=== PATIENT | female | born 1945 | race Caucasian/White ===

== ENCOUNTER → 2018-04-17 10:05 | Outpatient (CLI) | payer MEDICARE, SELFPAY ==
--- NOTE | 2018-04-17 | DI.MG.S_ITS ---
BILATERAL DIGITAL SCREENING MAMMOGRAM 3D/2D WITH CAD POST LUMPECTOMY: 04/17/2018 CLINICAL: Routine screening. Personal history of left breast cancer. Family history of breast cancer. Comparison is made to exams dated: 04/02/2017 mammogram - [facility], 02/15/2016 mammogram, and 12/17/2014 mammogram - [facility]. There are scattered fibroglandular elements in both breasts. Current study was also evaluated with a Computer Aided Detection (CAD) system. There are post operative findings and a biopsy clip in the left breast. No significant masses, calcifications, or other findings are seen in either breast. There has been no significant interval change. IMPRESSION: NEGATIVE There is no mammographic evidence of malignancy. A 1 year screening mammogram is recommended. This exam was interpreted at Station ID: [id number]. NOTE: For mammograms, a report in lay terms will be sent to the patient. Approximately 15% of breast malignancies will not be visualized mammographically. In the management of a palpable breast mass, a negative mammogram must not discourage biopsy of a clinically suspicious lesion. Electronically Signed By: Francisco alvarado/guadalupe:04/17/2018 16:47:34 letter sent: Normal Exam ACR BI-RADS Category 1: Negative 3341F
== END ==
PROVIDERS: Visit Provider Physician Assistant
DX: Z12.31 Encounter for screening mammogram for malignant neoplasm of breast (principal); Z85.3 Personal history of malignant neoplasm of breast; Z80.3 Family history of malignant neoplasm of breast
CPT/HCPCS: 77063; 77067

== ENCOUNTER → 2019-04-20 11:32 | Outpatient (CLI) | payer MEDICARE, SELFPAY ==
--- NOTE | 2019-04-20 | DI.MG.S_ITS ---
BILATERAL DIGITAL SCREENING MAMMOGRAM 3D/2D WITH CAD: 04/20/2019 CLINICAL: Routine screening. Personal history of breast cancer, Family history of breast cancer. Comparison is made to exams dated: 04/17/2018 mammogram, 04/02/2017 mammogram - [facility], and 02/15/2016 mammogram - [facility]. There are scattered fibroglandular elements in both breasts. Current study was also evaluated with a Computer Aided Detection (CAD) system. There are benign post operative findings in the left breast. There also are benign calcifications in both breasts. Additionally, there is a benign biopsy clip in the left breast. No significant masses, calcifications, or other findings are seen in either breast. There has been no significant interval change. IMPRESSION: There is no mammographic evidence of malignancy. A 1 year screening mammogram is recommended. This exam was interpreted at Station ID: [id number]. NOTE: For mammograms, a report in lay terms will be sent to the patient. Approximately 15% of breast malignancies will not be visualized mammographically. In the management of a palpable breast mass, a negative mammogram must not discourage biopsy of a clinically suspicious lesion. Electronically Signed By: Meng duran/guadalupe:04/20/2019 12:29:14 letter sent: Normal Exam ACR BI-RADS Category 2: Benign Finding(s) 3342F
== END ==
PROVIDERS: PCP Student in an Organized Health Care Education/Training Program; Visit Provider Student in an Organized Health Care Education/Training Program
DX: Z12.31 Encounter for screening mammogram for malignant neoplasm of breast (principal); Z85.3 Personal history of malignant neoplasm of breast; Z80.3 Family history of malignant neoplasm of breast
CPT/HCPCS: 77063; 77067

== ENCOUNTER → 2021-03-02 11:01 | Outpatient (CLI) | payer MEDICARE, SELFPAY ==
--- NOTE | 2021-03-02 | DI.MG.S_ITS ---
BILATERAL DIGITAL SCREENING MAMMOGRAM 3D/2D WITH CAD POST LUMPECTOMY: 03/02/2021 CLINICAL: Routine screening. Personal history of left breast cancer. Family history of breast cancer. Comparison is made to exams dated: 04/20/2019 mammogram, 04/17/2018 mammogram, and 04/02/2017 mammogram - [facility]. There are scattered fibroglandular elements in both breasts. Current study was also evaluated with a Computer Aided Detection (CAD) system. There are benign calcifications in both breasts. There also are benign post operative findings and biopsy clip in the left breast. No significant masses, calcifications, or other findings are seen in either breast. There has been no significant interval change. IMPRESSION: BENIGN There is no mammographic evidence of malignancy. A 1 year screening mammogram is recommended. This exam was interpreted at Station ID: [id number]. NOTE: For mammograms, a report in lay terms will be sent to the patient. Approximately 15% of breast malignancies will not be visualized mammographically. In the management of a palpable breast mass, a negative mammogram must not discourage biopsy of a clinically suspicious lesion. Electronically Signed By: Francisco alvarado/guadalupe:03/02/2021 11:46:58 letter sent: Normal Exam ACR BI-RADS Category 2: Benign Finding(s) 3342F
== END ==
PROVIDERS: PCP Student in an Organized Health Care Education/Training Program; Referring Provider Student in an Organized Health Care Education/Training Program; Visit Provider Student in an Organized Health Care Education/Training Program
DX: Z12.31 Encounter for screening mammogram for malignant neoplasm of breast (principal); Z85.3 Personal history of malignant neoplasm of breast; Z80.3 Family history of malignant neoplasm of breast
CPT/HCPCS: 77063; 77067

== ENCOUNTER → 2022-05-16 14:33 | Outpatient (CLI) | payer MEDICARE, SELFPAY ==
--- NOTE | 2022-05-16 | DI.MG.S_ITS ---
BILATERAL DIGITAL SCREENING MAMMOGRAM 3D/2D WITH CAD POST LUMPECTOMY: 05/16/2022 CLINICAL: Routine screening. Personal history of left breast cancer. Family history of breast cancer. Comparison is made to exams dated: 03/02/2021 mammogram, 04/20/2019 mammogram, and 04/17/2018 mammogram - [facility]. There are scattered fibroglandular elements in both breasts. Current study was also evaluated with a Computer Aided Detection (CAD) system. There are benign calcifications in both breasts. There also are benign post operative findings and biopsy clip in the left breast. No significant masses, calcifications, or other findings are seen in either breast. There has been no significant interval change. IMPRESSION: BENIGN There is no mammographic evidence of malignancy. A 1 year screening mammogram is recommended. This exam was interpreted at Station ID: [id number]. NOTE: For mammograms, a report in lay terms will be sent to the patient. Approximately 15% of breast malignancies will not be visualized mammographically. In the management of a palpable breast mass, a negative mammogram must not discourage biopsy of a clinically suspicious lesion. Electronically Signed By: Raffy Cordoba M.D., jr/guadalupe:05/16/2022 15:33:42 letter sent: Normal Exam ACR BI-RADS Category 2: Benign Finding(s) 3342F
== END ==
PROVIDERS: PCP Student in an Organized Health Care Education/Training Program; Referring Provider Student in an Organized Health Care Education/Training Program; Visit Provider Student in an Organized Health Care Education/Training Program
DX: Z12.31 Encounter for screening mammogram for malignant neoplasm of breast (principal); Z85.3 Personal history of malignant neoplasm of breast; Z80.3 Family history of malignant neoplasm of breast
CPT/HCPCS: 77063; 77067

== ENCOUNTER → 2023-09-23 11:24 | Outpatient (CLI) | payer MEDICARE, SELFPAY ==
--- NOTE | 2023-09-23 11:25 | DI.MG.S_ITS ---
BILATERAL DIGITAL SCREENING MAMMOGRAM 3D/2D WITH CAD: 09/23/2023 CLINICAL: Routine screening. Personal history of left breast cancer.Family history. Comparison is made to exams dated: 05/16/2022 mammogram, 03/02/2021 mammogram, and 04/20/2019 mammogram - [facility]. There are scattered areas of fibroglandular density in both breasts (category b / 25%-50% glandular tissue). Current study was also evaluated with a Computer Aided Detection (CAD) system. There are benign calcifications in both breasts. There also are benign post operative findings and biopsy clip in the left breast. No significant masses, calcifications, or other findings are seen in either breast. There has been no significant interval change. IMPRESSION: BENIGN There is no mammographic evidence of malignancy. A 1 year screening mammogram is recommended. This exam was interpreted at Station ID: [id number]. NOTE: For mammograms, a report in lay terms will be sent to the patient. Approximately 15% of breast malignancies will not be visualized mammographically. In the management of a palpable breast mass, a negative mammogram must not discourage biopsy of a clinically suspicious lesion. Electronically Signed By: Alondra li/guadalupe:09/23/2023 14:29:31 letter sent: Normal Exam ACR BI-RADS Category 2: Benign Finding(s) 3342F
== END ==
PROVIDERS: PCP Student in an Organized Health Care Education/Training Program; Referring Provider Student in an Organized Health Care Education/Training Program; Visit Provider Student in an Organized Health Care Education/Training Program
DX: Z12.31 Encounter for screening mammogram for malignant neoplasm of breast (principal); Z85.3 Personal history of malignant neoplasm of breast; Z80.3 Family history of malignant neoplasm of breast
CPT/HCPCS: 77063; 77067

== ENCOUNTER → 2024-01-03 15:57 | Outpatient (CLI) | payer MEDICARE, SELFPAY | PROVIDERS: PCP Student in an Organized Health Care Education/Training Program; Referring Provider Specialist; Visit Provider Specialist | DX: Z01.818 Encounter for other preprocedural examination (principal) | CPT/HCPCS: 93005 ==

== ENCOUNTER 2024-01-09 06:42 | Day surgery (SDC) | payer MEDICARE, SELFPAY ==
[2024-01-02 10:33] VITALS: BMI 26.9
[2024-01-09] VITALS (16 sets, daily range): BP systolic 120–185; BP diastolic 50–82; PULSE 56–79; RESP 12–18; TEMP 36.1–36.4; O2SAT 94–99; BMI 26.9; BMI 31.1
--- NOTE | 2024-01-09 | PATH_ITS ---
[facility] Accession Number: [id number] No. of containers..01 Tissue . 01 Material submitted: . uterus - UTERUS + CERVIX . 01 Diagnosis: UTERUS AND CERVIX, HYSTERECTOMY: Cervix: Nabothian cysts and parakeratosis. Endometrium: Endometrial polyp and background inactive endometrium. Myometrium: Few scattered areas of adenomyosis with cystic atrophy; leiomyomata with hyalinization. Serosa: No sigificant pathologic abnormalities. [facility] 01/14/2024 1454 Local . 01 Electronically signed: . Lakisha Vaughan MD, Pathologist NPI- [id number] . 01 Gross description: . Received in formalin with two identifiers and uterus and cervix, is an intact uterus (50 grams, 8.9 cm from superior to inferior, 4.0 cm from medial to lateral, 3.1 cm from anterior to posterior) with attached cervix (3.3 x 2.3 cm), and no additional adnexa. . The ectocervix is flores and wrinkled with a slit-like os measuring 0.7 cm in diameter. The presumed anterior paracervical margin is inked blue while the presumed posterior paracervical margin is inked blue (the serosal reflections are slightly distorted). . The serosa is flores and smooth with no pinpoint hemorrhage or adhesion identified. . The endocervical canal has flores herringbone mucosa and measures 2.4 cm in length. The endometrial cavity measures 1.7 cm from cornu to cornu, and 3.7 cm in length with pink-red, lush endometrium that averages 0.2 cm thick with a pink-red, polypoid nodule measuring 1.0 x 0.4 x 0.3 cm. The myometrium is flores and trabecular measuring up to 1.1 cm in maximum thickness with a submucosal cystic nodule measuring 0.4 cm in greatest dimension filled with green-brown semisolid viscous material. Two flores rubbery nodules are identified measuring 0.4 and 0.7 cm in greatest dimension with no hemorrhage or necrosis identified. . Plastic Printer sections are submitted as follows: A1: Anterior cervix. A2: Posterior cervix. A3: Anterior full thickness section with cystic area. A4: Posterior full thickness section with polypoid nodule. A5: Nodules. A6: Serosa. ([id number]) /MRV 01/10/2024 1102 Local . 01 Pathologist provided ICD-10: N81.4 . 01 CPT . 180325 Performed at: [address] [facility] [address] [place] [address] [address], [place], [place] [id number] MD Francisco Sharma MD Phone: [phone]
[2024-01-09] MEDS: LACTATED RINGERS 1,000 ML 21 ML IV ×3 (07:22→10:33)
--- NOTE | 2024-01-09 09:00 | PM.PREOP ---
Pre-operative Note Interval Note History & Physical reviewed/Exam performed by Physician: Yes Changes to H&P: No
[2024-01-09] MEDS: CEFAZOLIN 2 GM/100 ML PREMIX 100 ML IV (09:30)
--- NOTE | 2024-01-09 09:55 | SUR.OPER ---
Lithotomy on padded OR bed, head on pillow, arms secured on padded arm boards at <90 degrees abduction. Legs secured in padded yellow fins stirrups.
[2024-01-09] MEDS: BUPIVACAINE 0.5% (PF) 30 ML, EPINEPHrine 0.15 MG INJ (10:03)
--- NOTE | 2024-01-09 10:57 | PM.OP.1 ---
Operative Date/Time/Diagnoses Date of procedure: 01/09/24 Time of procedure: 10:57 Pre-op diagnosis: Uterine prolapse Post-op diagnosis: same (Vaginal apex prolapse as well) Procedure & Clinicians Procedure: Total vaginal hysterectomy with right sided sacrospinous ligament fixation Same procedure as scheduled: No (Vaginal apex needed further support after removal of the uterus) Indications: Symptomatic uterine prolapse Surgeon: Julieth Salas Data Warehousing Manager: Kee Leblanc Anesthesia Type: General Operative Notes Findings: Uterus prolapse to the hymen small and otherwise normal. No cystocele or rectocele. Vaginal apex prolapse after hysterectomy repaired with sacrospinous ligament fixation Closure Type: primary Specimen(s): other (Uterus) Applied: catheter (Verdin) and other (Vaginal packing) Estimated Blood Loss (mL): 30 Blood products transfused: none Procedure in detail: Patient was brought to the operating room where she underwent general anesthesia. [facility] A check system was reviewed. 2 gram Ancef were in prior to beginning case. Warming was in place with Marla Hugger. Pulsatile stockings were in place and functional. A Verdin catheter was placed. She was prepped and draped in the usual sterile fashion. Bupivacaine was injected around the cervix. The cervix was circumscribed with the scalpel. The posterior vaginal wall was dissected away from the cervix with blunt dissection. The peritoneum was entered sharply. The bladder pillars were clamped cut and ligated. Using sharp and blunt dissection the bladder was pushed away from the cervix. Anterior colpotomy incision was made. The bladder was held away from the uterus. Sequential bites were taken up the cardinal and broad ligaments with the LigaSure. The utero-ovarian and fallopian tube ligaments were clamped and held. The uterus was removed. The ligaments were sutured x2 with 0 Vicryl suture. Adequate hemostasis noted. The vaginal cuff was closed from anterior to posterior with [id number] sutures of 0 Vicryl suture. The abdomen was reinsufflated and adequate hemostasis was noted. An area over the posterior vaginal wall was injected with bupivacaine. Incision was made with a scalpel. Blunt dissection to the sacrospinous ligament was performed on the right side. The Capio needle using 0 Prolene suture was placed through the sacrospinous ligament. The suture was placed under the vaginal apex. A finger placed in the rectum did not reveal the suture through the sigmoid. The vaginal incision was closed part way with 2- 0 Vicryl suture. The sacrospinous ligament suture was tightened down and cut. The remainder of the vaginal incision was repaired with the 2-0 Vicryl suture. Vaginal packing was placed. The counts of instruments and sponges were correct. Patient went to recovery room in good condition. Complications: none Post-operative Condition: stable Disposition: observation (Vaginal packing and Verdin will be removed in the a.m. patient will be discharged after) Plan for aftercare: Home after vaginal packing and Verdin removed in a.m..
[2024-01-09] MEDS: IBUPROFEN 600 MG TABLET PO ×2 (11:48→17:11)
[2024-01-09] MEDS: ACETAMINOPHEN 325 MG TABLET 650 MG PO ×2 (11:48→17:11)
[2024-01-09] MEDS: DOCUSATE 100 MG CAPSULE 200 MG PO (21:34)
[2024-01-09] MEDS: ZOLPIDEM 5 MG TABLET PO (21:35)
[2024-01-10] MEDS: ACETAMINOPHEN 325 MG TABLET 650 MG PO (03:51)
[2024-01-10 05:16] LABS: Add Manual Diff / Slide Review NO; Basophils Absolute Auto 0 /uL (0-100); Basophils Percent Auto 0.1 % (0-2); Eosinophils Absolute Auto 0 /uL (0-450); Eosinophils Percent Auto 0.1 % (2-4); Hematocrit 32.1 % (36-46); Lymphocytes Absolute Auto 1700 /uL (1100-4500); Mean Corpuscular HGB Conc 34.3 % (30-36); Mean Corpuscular Hemoglobin 30.2 PG (26-34); Monocytes Absolute Auto 1200 /uL (0-900); Monocytes Percent Auto 9.2 % (3-14); Neutrophils Absolute Auto 10000 /uL (1500-7000); Neutrophils Percent Auto 77.6 % (50-75); Platelet Count 240 X10^3/uL (150-400); Red Blood Cell Count 3.64 X10^6/uL (4.0-5.2); Red Cell Distribution Width 14.5 % (11.6-14.8); White Blood Cell Count 12.9 X10^3/uL (4.5-11.0)
[2024-01-10 05:37] LABS: BUN Creatinine Ratio 27.1 (6-22); Blood Urea Nitrogen 29 mg/dL (7-17); Calcium 9.6 mg/dL (8.4-10.2); Carbon Dioxide 29 mmol/L (22-32); Chloride 104 mmol/L (98-107); Estimated Glomerular Filt Rate 53 mL/min (>60); Glucose 117 mg/dL (80-110); HEMOLYSIS < 15 (0-50); Potassium 3.4 mmol/L (3.4-5.1); Sodium 138 mmol/L (137-145)
[2024-01-10] MEDS: IBUPROFEN 600 MG TABLET PO (06:10)
--- NOTE | 2024-01-10 09:01 | PM.DS.1 ---
History of Present Illness History of Present Illness Date Patient Seen: 01/10/24 Time Patient Seen: 09:01 Chief complaint: Total Vaginal Hysterectomy *OPB* Discharge Providers Provider Discharge Date: 01/10/24 Primary care physician: Maria L Gaines PA-C Discharge provider: Julieth Salas MD Summary Hospital Course Discharge Diagnosis: Uterine prolapse with vaginal apex prolapse Hospital Course: Patient underwent a total vaginal hysterectomy with sacrospinous ligament fixation on 01/09/2024 for complaints of uterine prolapse. Patient had her Verdin catheter and vaginal packing removed today. She has pain that is controlled with Tylenol and Motrin. She has urinated post removal of her Verdin catheter. She is ambulatory. Status at Discharge Cognitive/behavioral status at discharge: oriented Functional status at discharge: independent ambulation Overall status at discharge: patient is progressing back to baseline Time Spent with Patient Time spent: Less than 30 minutes Exam Vital Signs (past 8 hours): Vital signs are stable Oxygen Delivery Method Room Air Oxygen Flow Rate 0 Narrative Exam Narrative: Abdomen is soft, nontender. Minimal vaginal bleeding. Extremities without edema and nontender. Objective Labs 01/10/24 04:21 01/10/24 04:21 Labs: Laboratory Results - last 24 hr 01/10/24 04:21 WBC 12.9 H RBC 3.64 L Hgb 11.0 L Hct 32.1 L MCV 88.0 MCH 30.2 MCHC 34.3 RDW 14.5 Plt Count 240 Neut % (Auto) 77.6 H Lymph % (Auto) 13.0 L [place] % (Auto) 9.2 Eos % (Auto) 0.1 L Baso % (Auto) 0.1 Neut # (Auto) 45300 H Lymph # (Auto) 1700 [place] # (Auto) 1200 H Eos # (Auto) 0 Baso # (Auto) 0 Sodium 138 Potassium 3.4 Chloride 104 Carbon Dioxide 29 BUN 29 H Creatinine 1.07 H Estimated GFR 53 L BUN/Creatinine Ratio 27.1 H Glucose 117 H Calcium 9.6 PFSH Medical History (Updated 01/02/24 @ 10:38 by Aurora Persaud RN) Rosacea (~2021) Actinic keratosis (~2017) Scoliosis Ovarian cyst (~2001) Heavy menstrual period (~2001) Breast cancer (~2008) Hypertension Surgical History (Updated 01/09/24 @ 10:50 by Julieth Salas MD) Anesthesia History of breast surgery (~2007) History of cataract removal with insertion of prosthetic lens (~2021) History of vaginal surgery Family History (Updated 04/26/23 @ 20:30 by Becky Crawford) Father History of heart disease Mother Hypertension Sister Breast cancer Social History household members: spouse Smoking Status: Never smoker alcohol intake: current Discharge Assessment & Plan Assessment and Plan Assessment: Postop total vaginal hysterectomy with sacrospinous ligament fixation doing well. Plan of Treatment: Patient is discharged home to be followed up in 2 weeks. Patient is to avoid anything in her vagina or lifting over 10 lb for 6 weeks. Routine precautions for bleeding, fever, pain reviewed with the patient. Discharge Plan Discharge Plan Patient Disposition: Home Discharge orders & Medications Discharge Orders: Discharge (Order); Ordered 01/10/24 Ordered By: Julieth Salas Prescriptions: Continued simvastatin 5 mg tablet 5 mg PO 3XD Qty: 0 cholecalciferol (vitamin D3) [Vitamin D3] 2,000 unit capsule 1 unit PO DAILY Qty: 0 levothyroxine 13 mcg capsule 13 mcg PO DAILY chlorthalidone 15 mg tablet 15 mg PO DAILY felodipine 10 mg tablet extended release 24 hr 10 mg PO DAILY lisinopril 20 mg tablet 20 mg PO DAILY oxycodone 5 mg tablet 5 mg PO Q4H PRN (Reason: pain) Qty: 14 0RF Follow up/Referrals: Julieth Salas MD [Physician] - 2 Weeks (Patient has postop appointment scheduled on 01/23/2024) Maria L Gaines PA-C [Primary Care Provider] - Diet/Activity/Treatments Diet: Regular Activity: Nothing in vagina or lifting over 10 lb for 6 weeks Skin/Wound/Dressing Care Report to your healthcare provider any signs of infection, such as:: chills, fever and increased pain Visit Report/Discharge Packet Instructions: DI for Hysterectomy Stand Alone Forms: Patient Portal/API, Surgery Discharge Discharge Data Primary Care Provider: Maria L Gaines Attending Provider: Julieth Salas Quality VTE Deep Vein Thrombosis/Pulmonary Embolism Present on Admission: No
[2024-01-10] MEDS: DOCUSATE 100 MG CAPSULE 200 MG PO (09:25)
[2024-01-10 09:26] VITALS: BP 146/43; PULSE 53; RESP 20; TEMP 35.9; O2SAT 97
[2024-01-10] MEDS: POTASSIUM CHLORIDE 20 MEQ TAB 40 MEQ PO (09:31)
--- NOTE | 2024-01-10 09:39 | PC.NURSE ---
dc instructions reviewed with pt and . Pt is taking morning meds at home. Voided and minimal blood on toilet paper from vaginal
--- NOTE | 2024-01-10 12:55 | CM.DANOTE ---
Initial DCP Assessment Visit Note Reviewed EMR and team rounds for pt's medical status and anticipated home d/c needs. Met with pt/spouse at bedside to introduce self and role. Pt was dressed and ready for d/c, spouse will transport her home. Pt resides with spouse independently in their own home in [place]. Payor: Medicare Attending: Dr. Salas Pt is a 78 year-old F placed in OPB following her total vaginal hysterectomy yesterday. She is expressing feeling good, is anxious to get home, and understands her post-op care instructions and f/u appt. with Dr. Salas. She had a recent hx of prolapsed uterus, no vaginal bleeding or pain. Pt/spouse deny any community resources at this time. No further DCP indicated for this admission. Discharge Planning/Care Management CM Discharge Assessment Start: 01/10/24 12:53 Freq: Status: Active Protocol: Document 01/10/24 12:53 DPL (Rec: 01/10/24 12:55 DPL [id number]) Discharge Planning Assessment Assigned Data Management REUBEN Garcia Advance Directives? Yes Advance Directives on File No History Provided By Patient,Medical Record Has Patient been admitted in last 30 No days? Prior Living Arrangements House Household Members spouse Type of transporation used prior to Drives own vehicle admit Independent with ADL's Yes Is patient alert and oriented? Yes Comment N/A Caregiver for Another No Comment No identified home d/c needs at this time. Barriers to Discharge No Discharge Plan Home Transportation Arrangement Spouse Referrals Initiated None needed Whiteboard Updated in Patient Room with Yes name and ext. 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 No Hx Sleep Apnea No Currently Taking a Beta Paulette No Anti-Coagulant Therapy No Cardiac Testing No Hx Pacemaker/ICD No Pacemaker Rep Required? No Cardiac Clearance Received Not Applicable Chronic UTI No Urinary Catheter Present No Hx Urinary Self Catheterization No Diabetes No Patient No Lactating No Presence of External or Internal Medical Yes: Eye IOLs Devices Marital Status Lives With spouse Patient Discharge Plan Description Return Home
== END 2024-01-10 09:39 | disposition home or self-care (01) ==
LOC: OR 06:43 → AC 06:44
PROVIDERS: PCP Student in an Organized Health Care Education/Training Program; Referring Provider Specialist; Visit Provider Specialist
PROC: (CPT 58260; principal; 2024-01-09 07:45)
DX: N81.2 Incomplete uterovaginal prolapse (principal)
CPT/HCPCS: 58260; 36415; 80048; 85025; J0171; J0690; J1100; J2704; J3010; J3490

== ENCOUNTER → 2024-02-19 11:16 | Outpatient (CLI) | payer MEDICARE, SELFPAY ==
[2024-01-09 11:47] VITALS: BMI 31.1
[2024-02-19 11:52] LABS: Appearance Urine UA CLEAR; Bilirubin Urine UA NEGATIVE (NEGATIVE); Color Urine UA YELLOW; Glucose Urine UA NEGATIVE (Negative); Ketones Urine UA NEGATIVE (NEGATIVE); Leukocyte Esterase Urine UA 2+ (NEGATIVE); Nitrite Urine UA NEGATIVE (Negative); Occult Blood Urine UA NEGATIVE (Negative); Protein Urine UA NEGATIVE (Negative); Urobilinogen Urine UA 0.2 E.U./dL (0.2)
[2024-02-19 11:54] LABS: Urine Volume 10mL (spun)
[2024-02-19 11:57] LABS: Bacteria Urine None Seen; Culture Indicated Urine Specimen Cultured; RBC Urine None Seen (0-5/HPF); Squamous Epithelial Cell Urine 0-1 /HPF (0-5/HPF); WBC Urine 1-5/HPF (0-5/HPF)
== END ==
PROVIDERS: PCP Student in an Organized Health Care Education/Training Program; Visit Provider Obstetrics & Gynecology
DX: R35.0 Frequency of micturition (principal); Z90.710 Acquired absence of both cervix and uterus
CPT/HCPCS: 81001; 87086

== ENCOUNTER 2024-03-08 11:36 | Emergency (ER) | payer MEDICARE, SELFPAY ==
[2024-01-09 11:47] VITALS: BMI 31.1
[2024-03-08 11:47] VITALS: BP 184/77; PULSE 57; RESP 18; TEMP 36.4; O2SAT 98; BMI 28.7
--- NOTE | 2024-03-08 11:56 | DI.RAD.S_ITS ---
PROCEDURE: XR KNEE LT 3V INDICATIONS: nontraumatic knee pain/swelling TECHNIQUE: 3 views of the knee were acquired. COMPARISON: None. FINDINGS: Bones: No fractures or dislocations. No suspicious bony lesions. Mild joint space narrowing with osteophytes of the patella. Patellar enthesophytes. Soft tissues: Small joint effusion. No suspicious soft tissue calcifications. IMPRESSION: Small effusion with patellofemoral osteoarthrosis. Dictated by: Castillo Cordoba M.D. on 03/08/2024 at 12:37 Approved by: Castillo Cordoba M.D. on 03/08/2024 at 12:38
--- NOTE | 2024-03-08 12:44 | PC.NURSE ---
Patient with gradual onset and worsening of left knee pain. Started middle of last week and was intermittent in nature, reports hx of knee issues that usually resolve with rest and no other interventions. Strang well enough to go to the gym on Saturday and used weight machine that required flexion of knees and was okay. Saturday walked around outside and came home with increase in pain, laid on the couch and iced and since has had extreme difficulty with position of comfort and ability to bend knee. Left knee is warmer than right, and is tender to palpation below patella. Patient states standing is most comfortable but shows sign of discomfort with standing. No hx of knee surgery, thinners, joint infections, or injury. Recent UTI diagnosis and treatment 2 weeks ago and hysterectomy 2 months ago.
--- NOTE | 2024-03-08 13:15 | ED_ITS ---
HPI - Extremity Problem <STEFFEN Posada - Last Filed: 03/08/24 14:16> General Chief complaint: Extremity Problem,Nontraumatic Stated complaint: lt knee bothering her Time Seen by Provider: 03/08/24 12:46 Source: patient Mode of arrival: Ambulatory History of Present Illness HPI Narrative: 78-year-old female presents to the emergency department with left knee pain x4 days. Patient was having mild discomfort mid week. Patient reports she frequently has knee pain, tends to baby it until it resolves. Patient felt good enough to go to the gym on Saturday where she engaged in some squats, leg presses and leg abduction/adduction. The following day patient went for a walk and started developing worsening left knee pain. Patient went home to rest, ice and elevate the knee, but symptoms did not improve. Patient denies any direct trauma to the knee. Patient is using a walking stick to help with balance. Related Data Home Medications Medication Instructions Recorded Confirmed cholecalciferol (vitamin D3) 50 1 unit PO DAILY ##0 06/03/16 01/23/24 mcg (2,000 unit) capsule (Vitamin D3) simvastatin 5 mg tablet 5 mg PO 3XD ##0 06/03/16 01/23/24 chlorthalidone 15 mg tablet 15 mg PO DAILY 01/03/24 01/23/24 felodipine 10 mg tablet,extended 10 mg PO DAILY 01/03/24 01/23/24 release 24 hr levothyroxine 13 mcg capsule 13 mcg PO DAILY 01/03/24 01/23/24 lisinopril 20 mg tablet 20 mg PO DAILY 01/03/24 01/23/24 Previous Rx's Medication Instructions Recorded oxycodone 5 mg tablet 5 mg PO Q4H PRN pain #14 tabs 01/03/24 estradiol 0.01% (0.1 mg/gram) 0.5 g vaginal 2XW #42.5 grams 02/19/24 vaginal cream (Estrace) nitrofurantoin macrocrystal 100 mg 100 mg PO BID #10 caps 02/19/24 capsule (Macrodantin) Allergies Allergy/AdvReac Type Severity Reaction Status Date / Time No Known Drug Allergies Allergy Verified 03/08/24 11:54 Review of Systems <STEFFEN Posada - Last Filed: 03/08/24 14:16> Review of Systems Narrative: Narrative: See HPI. GENERAL: Denies chills, fatigue, fever, sweats. HEENT: Denies sinus pain, ear pain, sore throat, difficulty swallowing, dizziness. RESPIRATORY: Denies dyspnea, cough, wheezing, sputum. CARDIOVASCULAR: Denies chest pain, palpitations, edema. GASTROINTESTINAL: Denies nausea, vomiting, abdominal pain, diarrhea, constipation. : Denies dysuria, frequency, incontinence, hematuria, urinary retention, flank pain. MSK: Endorses left knee pain, swelling, redness and warmth. SKIN: Denies rash, skin lesions, or pruritis. NEUROLOGIC: Denies weakness, dizziness, headache, numbness, confusion. PSYCHIATRIC: No concerning psychosocial issues. Patient History <STEFFEN Posada - Last Filed: 03/08/24 14:16> Medical History Rosacea (~2021) Actinic keratosis (~2017) Scoliosis Ovarian cyst (~2001) Heavy menstrual period (~2001) Breast cancer (~2008) Hypertension Surgical History Anesthesia History of breast surgery (~2007) History of cataract removal with insertion of prosthetic lens (~2021) History of vaginal surgery Family History Father History of heart disease Mother Hypertension Sister Breast cancer Social History household members: spouse Smoking Status: Never smoker alcohol intake: current Smoking Status: Never smoker alcohol intake frequency: a few times a week Substance Use Type: does not use Exam <STEFFEN Posada - Last Filed: 03/08/24 14:16> Narrative Exam Narrative: Exam Narrative: GENERAL: This is a well-nourished, well-developed patient, in no acute distress. HEAD: Atraumatic. Normocephalic. ENT: Nose without bleeding, purulent drainage. Airway patent. CARDIOVASCULAR: Regular rate and rhythm without murmurs, peripheral pulses intact, cap refill <2 sec. RESPIRATORY: Breath sounds equal and clear bilaterally. No wheezes, rales, or rhonchi. No cough. No increased respiratory effort. No accessory muscle use. MSK: Moves all extremities. Normal range of motion, no clubbing or edema. Neurovascularly intact. NEURO: A&O x 3. SKIN: Warm, dry, no rashes or lesions noted. KNEE: There is redness, warmth and swelling, but no bruising or asymmetry. There is no tenderness to general palpation. Tenderness noted to tibial tu berosity. There is no joint line tenderness. There is no patellar tenderness. There is no popliteal fullness. Patella tracks normally. Range of motion is limited due to pain. Resistive strength for flexion and extension is intact. Collateral and cruciate ligaments are intact. Gait is antalgic. The contralateral knee exam is unremarkable. Initial Vital Signs Initial Vital Signs: Vital Signs Temperature 97.5 F L 03/08/24 11:47 Pulse Rate 57 L 03/08/24 11:47 Respiratory Rate 18 03/08/24 11:47 Blood Pressure 184/77 H 03/08/24 11:47 Pulse Oximetry 98 03/08/24 11:47 Oxygen Delivery Method Room Air 03/08/24 11:47 Reviewed <Sara Cherry DO - Last Filed: 03/11/24 13:20> Initial Vital Signs Initial Vital Signs: Vital Signs Temperature 97.5 F L 03/08/24 11:47 Pulse Rate 57 L 03/08/24 11:47 Respiratory Rate 18 03/08/24 11:47 Blood Pressure 184/77 H 03/08/24 11:47 Pulse Oximetry 98 03/08/24 11:47 Oxygen Delivery Method Room Air 03/08/24 11:47 Course <STEFFEN Posada - Last Filed: 03/08/24 14:16> Orders Ordered: ED Orders 03/08/24 11:56 XR knee LT 3V Stat Vital Signs Vital signs: Vital Signs - 8 hr 03/08/24 11:47 03/08/24 14:14 Temperature 97.5 F L Pulse Rate 57 L 54 L Respiratory Rate 18 17 Blood Pressure 184/77 H 145/69 H Pulse Oximetry 98 98 Oxygen Delivery Method Room Air Room Air <Sara Cherry DO - Last Filed: 03/11/24 13:20> Orders Ordered: ED Orders 03/08/24 11:56 XR knee LT 3V Stat Vital Signs Vital signs: Vital Signs - 8 hr 03/08/24 11:47 03/08/24 14:14 Temperature 97.5 F L Pulse Rate 57 L 54 L Respiratory Rate 18 17 Blood Pressure 184/77 H 145/69 H Pulse Oximetry 98 98 Oxygen Delivery Method Room Air Room Air MDM - Extremity (Nontraumatic) <Ray FigueroaSTEFFEN - Last Filed: 03/08/24 14:16> Differential Diagnosis Differential diagnosis: Likely cellulitis and other (Knee strain, arthritis, septic knee, patellofemoral strain) Imaging Data Extremity x-ray #1: Radiologist's Impression: [address] [address] XRay Report Signed Patient: More Sosa MR#: [id number] : 1945 Acct:[id number] Age/Sex: 78 / F Date of Service: 03/08/24 Loc: ED Accession Number: [id number] Procedure: XR knee LT 3V Ordering Provider: Sara Cherry D.O. PROCEDURE: XR KNEE LT 3V INDICATIONS: nontraumatic knee pain/swelling TECHNIQUE: 3 views of the knee were acquired. COMPARISON: None. FINDINGS: Bones: No fractures or dislocations. No suspicious bony lesions. Mild joint space narrowing with osteophytes of the patella. Patellar enthesophytes. Soft tissues: Small joint effusion. No suspicious soft tissue calcifications. IMPRESSION: Small effusion with patellofemoral osteoarthrosis. Dictated by: Castillo Cordoba M.D. on 03/08/2024 at 12:37 Approved by: Castillo Cordoba M.D. on 03/08/2024 at 12:38 [facility] Narrative Medical decision making narrative: 78-year-old female with left knee pain. Patient was seen in the walk-in clinic earlier today and referred to the emergency department for possible workup for septic joint. Assessment revealed a left knee that is more red, warm and swollen than the right. Tenderness over tibial tuberosity. X-ray revealed left patellofemoral osteoarthrosis. Discussed case with Dr. Cherry. Low suspicion for a septic joint, but believe this is more a overuse injury. Recommended rest, ice, elevation and NSAIDs. Discussed plan of care, recommended follow up with family doctor and discussed worsening symptoms that would necessitate a return visit to the emergency department. Patient and spouse verbalized understanding and were agreeable with course of action. Discharge Plan Departure Patient Disposition: Home Clinical Impression: Acute pain of left knee Instructions: DI for Patellofemoral Pain Syndrome-Adult, DI for Knee Pain Activity Restrictions/Additional Instructions: *You have been diagnosed with left knee pain. Your x-ray revealed a patellofemoral arthrosis which may be from overuse of that particular joint. My assessment was not consistent with a septic joint, but believe this to be overuse injury. As we discussed, please rest the joint, apply hot or cold compresses to the affected area, gentle range of motion stretching exercises and Tylenol or ibuprofen as needed for discomfort. Please be kind yourself and allow time for the knee to improve. If symptoms worsen, such as increased redness, swelling, pain, or do not improve within 72 hours, please return to the emergency room immediately. Otherwise, please follow-up with your family doctor as needed. *What to do: *Please continue to take your regular medications as directed. [ ] New medication prescriptions sent to your pharmacy: [ ] [ ] New medication written as a paper prescription [x ] No new medications given *Please follow up with your primary care provider in 2-3 days, call for an appointment. Let them know you were seen in the Emergency Department and that we ask that you be seen in follow up. We will electronically transmit a record of today's note if your PCP is in our system *If you do not have a primary care provider please contact the [facility] Resource line at [phone]. They will ask some questions about your medical history and help get you set up with a doctor in the community. ? Return to ER if you should have any new, worsening or concerning symptoms, such as worsening pain, severe headache, confusion, chest pain, difficulty breathing, fever greater than 101 F, shaking chills, persistent vomiting to the point that you cannot drink fluids, or other new or worsening symptoms. Prescriptions: No Action simvastatin 5 mg tablet 5 mg PO 3XD Qty: 0 cholecalciferol (vitamin D3) [Vitamin D3] 2,000 unit capsule 1 unit PO DAILY Qty: 0 levothyroxine 13 mcg capsule 13 mcg PO DAILY chlorthalidone 15 mg tablet 15 mg PO DAILY felodipine 10 mg tablet extended release 24 hr 10 mg PO DAILY lisinopril 20 mg tablet 20 mg PO DAILY oxycodone 5 mg tablet 5 mg PO Q4H PRN (Reason: pain) Qty: 14 0RF estradiol [Estrace] 0.01 % (0.1 mg/gram) cream 0.5 g vaginal 2XW Qty: 42.5 3RF Rx Instructions: for 14 days nitrofurantoin macrocrystal [Macrodantin] 100 mg capsule 100 mg PO BID Qty: 10 1RF Rx Instructions: must administer with a meal/food Referrals: Maria L Gaines PA-C [Primary Care Provider] - Stand Alone Forms: Patient Portal/API ED Sign-out <Sara Cherry DO - Last Filed: 03/11/24 13:20> Cosign ED Attending Cosignature Attestation: I was immediately available in the department for consultation. Case was discussed with myself. Based on location of pain suspected more overuse injury than infection. Return precautions.
[2024-03-08 14:14] VITALS: BP 145/69; PULSE 54; RESP 17; O2SAT 98
== END 2024-03-08 14:20 | disposition home or self-care (01) ==
PROVIDERS: Emergency Provider Registered Nurse; PCP Student in an Organized Health Care Education/Training Program
DX: M25.562 Pain in left knee (principal); Z79.899 Other long term (current) drug therapy
CPT/HCPCS: 73562; 99283

== ENCOUNTER → 2024-04-13 08:56 | Outpatient (CLI) | payer MEDICARE, SELFPAY ==
[2024-01-09 11:47] VITALS: BMI 31.1
[2024-04-13 10:08] LABS: Add Manual Diff / Slide Review NO; Basophils Absolute Auto 100 /uL (0-100); Basophils Percent Auto 1.3 % (0-2); Eosinophils Absolute Auto 500 /uL (0-450); Eosinophils Percent Auto 5.1 % (2-4); Hematocrit 37.4 % (36-46); Hemoglobin 12.6 g/dL (12.0-16.0); Lymphocytes Absolute Auto 2300 /uL (1100-4500); Lymphocytes Percent Auto 22.2 % (25-40); Mean Corpuscular HGB Conc 33.6 % (30-36); Mean Corpuscular Hemoglobin 29.9 PG (26-34); Monocytes Absolute Auto 900 /uL (0-900); Monocytes Percent Auto 8.9 % (3-14); Neutrophils Absolute Auto 6600 /uL (1500-7000); Neutrophils Percent Auto 62.5 % (50-75); Platelet Count 369 X10^3/uL (150-400); Red Blood Cell Count 4.21 X10^6/uL (4.0-5.2); Red Cell Distribution Width 14.3 % (11.6-14.8); White Blood Cell Count 10.5 X10^3/uL (4.5-11.0)
[2024-04-13 10:37] LABS: Alanine Aminotransferase 12 IU/L (<35); Albumin 4.5 g/dL (3.5-5.0); Albumin Globulin Ratio 1.4 (1.0-2.8); Alkaline Phosphatase 82 U/L (38-126); Aspartate Aminotransferase 27 IU/L (14-36); BUN Creatinine Ratio 24.6 (6-22); Bilirubin Total 0.5 mg/dL (0.2-1.3); Blood Urea Nitrogen 28 mg/dL (7-17); Calcium 10.5 mg/dL (8.4-10.2); Carbon Dioxide 30 mmol/L (22-32); Chloride 102 mmol/L (98-107); Cholesterol 210 mg/dL (140-199); Estimated Glomerular Filt Rate 49 mL/min (>60); Globulin 3.3 g/dL (1.7-4.1); Glucose 123 mg/dL (80-110); HDL Cholesterol 62 mg/dL (40-60); HEMOLYSIS < 15 (0-50); LDL Cholesterol Calculated 118 mg/dL (<100); Potassium 4.9 mmol/L (3.4-5.1); Sodium 139 mmol/L (137-145); Total Protein 7.8 g/dL (6.3-8.2); Triglycerides 150 mg/dL (35-150)
[2024-04-13 11:07] LABS: TSH w/ Reflex to FT4 2.37 uIU/mL (0.47-4.68)
== END ==
PROVIDERS: PCP Family Medicine; Referring Provider Family Medicine; Visit Provider Family Medicine
DX: D72.829 Elevated white blood cell count, unspecified (principal); I10 Essential (primary) hypertension; Z86.39 Personal history of other endocrine, nutritional and metabolic disease; R94.4 Abnormal results of kidney function studies; E03.9 Hypothyroidism, unspecified
CPT/HCPCS: 36415; 80053; 80061; 84443; 85025

== ENCOUNTER → 2024-04-24 16:52 | Outpatient (CLI) | payer MEDICARE, SELFPAY ==
[2024-01-09 11:47] VITALS: BMI 31.1
--- NOTE | 2024-04-24 16:53 | DI.US.S_ITS ---
PROCEDURE: US RENAL COMPLETE INDICATIONS: Decreased GFR TECHNIQUE: Real-time scanning was performed of the kidneys and bladder, with image documentation. COMPARISON: None. FINDINGS: Kidneys: Kidneys are normal in size. Right kidney measures 9.2 cm long; left kidney measures 9.7 cm long. Right renal cortical thickness is 1.3 cm; left renal cortical thickness is 1.3 cm. Renal cortical echotexture is normal. No hydronephrosis or nephrolithiasis. No suspicious solid mass lesions. Simple cyst in midpole right kidney measures 1 x 0.9 x 1 cm in size is seen. Bladder: Patient voided prior to the study. No significant postvoid residual. Pre-void images demonstrate no intraluminal masses or stones. On pre-void images, no ureteral jets are noted with color Doppler interrogation. (Of note, ureteral jets may not be detectable in up to 25% of cases due to insufficient differences in specific gravity between ureteral and bladder urine). Miscellaneous: No free pelvic fluid. IMPRESSION: 1. Simple cyst in right kidney. No solid appearing renal lesion. No hydronephrosis. 2. No gross abnormality is seen in decompressed urinary bladder. Dictated by: Pablito Magallon M.D. on 04/24/2024 at 23:46 Approved by: Pablito Magallon M.D. on 04/24/2024 at 23:48
== END ==
PROVIDERS: PCP Family Medicine; Referring Provider Family Medicine; Visit Provider Family Medicine
DX: N28.1 Cyst of kidney, acquired (principal); R94.4 Abnormal results of kidney function studies
CPT/HCPCS: 76770

== ENCOUNTER → 2024-05-22 09:50 | Outpatient (CLI) | payer MEDICARE, SELFPAY ==
[2024-01-09 11:47] VITALS: BMI 31.1
[2024-05-22 10:56] LABS: BUN Creatinine Ratio 19.8 (6-22); Blood Urea Nitrogen 20 mg/dL (7-17); Calcium 10.2 mg/dL (8.4-10.2); Carbon Dioxide 26 mmol/L (22-32); Chloride 102 mmol/L (98-107); Estimated Glomerular Filt Rate 57 mL/min (>60); Glucose 110 mg/dL (80-110); HEMOLYSIS < 15 (0-50); Potassium 3.9 mmol/L (3.4-5.1); Sodium 137 mmol/L (137-145)
[2024-05-22 11:09] LABS: Vitamin D 25 Hydroxy (D3) 41.5 ng/mL (30.0-100.0)
[2024-05-23 16:35] LABS: Ionized Calcium 5.4 mg/dL (4.5-5.6)
[2024-05-24 00:10] LABS: Calcium 10.3 mg/dL (8.7-10.3); Parathyroid Hormone, Intact 61 pg/mL (15-65)
== END ==
PROVIDERS: PCP Family Medicine; Referring Provider Family Medicine; Visit Provider Family Medicine
DX: E83.52 Hypercalcemia (principal); I10 Essential (primary) hypertension
CPT/HCPCS: 36415; 80048; 82306; 82310; 82330; 83970

== ENCOUNTER → 2024-09-24 14:32 | Outpatient (CLI) | payer MEDICARE, SELFPAY ==
[2024-01-09 11:47] VITALS: BMI 31.1
--- NOTE | 2024-09-24 14:34 | DI.MG.S_ITS ---
BILATERAL DIGITAL SCREENING MAMMOGRAM 3D/2D WITH CAD: 09/24/2024 CLINICAL: Routine screening. Personal history of left breast cancer. Comparison is made to exams dated: 09/23/2023 mammogram, 05/16/2022 mammogram, and 03/02/2021 mammogram - [facility]. There are scattered areas of fibroglandular density (category b / 25%-50% glandular tissue). Current study was also evaluated with a Computer Aided Detection (CAD) system. There are benign calcifications in both breasts. There also are benign post operative findings and biopsy clip in the left breast. No significant masses, calcifications, or other findings are seen in either breast. There has been no significant interval change. IMPRESSION: BENIGN There is no mammographic evidence of malignancy. A 1 year screening mammogram is recommended. This exam was interpreted at Station ID: [id number]. NOTE: For mammograms, a report in lay terms will be sent to the patient. Approximately 15% of breast malignancies will not be visualized mammographically. In the management of a palpable breast mass, a negative mammogram must not discourage biopsy of a clinically suspicious lesion. Electronically Signed By: Meng duran/guadalupe:09/25/2024 17:04:43 letter sent: Normal Exam ACR BI-RADS Category 2: Benign
== END ==
PROVIDERS: PCP Family Medicine; Referring Provider Family Medicine; Visit Provider Family Medicine
DX: Z12.31 Encounter for screening mammogram for malignant neoplasm of breast (principal); Z85.3 Personal history of malignant neoplasm of breast
CPT/HCPCS: 77063; 77067

== ENCOUNTER 2025-01-31 11:34 | Emergency (ER) | payer MEDICARE, SELFPAY ==
[2024-01-09 11:47] VITALS: BMI 31.1
[2025-01-31] VITALS (20 sets, daily range): BP systolic 136–209; BP diastolic 63–80; PULSE 66–75; RESP 14–20; TEMP 36.5; O2SAT 93–100; BMI 29.2
--- NOTE | 2025-01-31 11:46 | DI.RAD.S_ITS ---
PROCEDURE: XR SHOULDER LT MIN 2V INDICATIONS: possible dislocation TECHNIQUE: 2 views of the shoulder were acquired. COMPARISON: None. FINDINGS: Bones: Anterior left shoulder dislocation with subcoracoid positioning of the right humeral head. Surgical clips in the right axilla. No pneumothorax or displaced rib fracture Soft tissues: No suspicious soft tissue calcifications. IMPRESSION: Anterior left shoulder dislocation Approved by: Min Silva M.D. on 01/31/2025 at 11:47
[2025-01-31] MEDS: MORPHINE 4 MG/ML INJ IV (12:19)
--- NOTE | 2025-01-31 12:53 | ED_ITS ---
HPI - Extremity Injury (Upper) General Chief Complaint: Extremity Injury, Upper Stated Complaint: L Shoulder Dislocation Time Seen by Provider: 01/31/25 12:42 Source: EMS Mode of arrival: EMS Limitations: no limitations History of Present Illness HPI narrative: 79-year-old female history of hypertension, dyslipidemia, gout presents with complaint of left shoulder pain. Patient was at the gym. She was lifting we ights. She was lying flat on her back, had 20 lb weight called in both hands that she was lifting from her abdomen head and backwards. She was going to about 150?. Patient states she felt sudden pain in her left shoulder. Patient has had chronic issues with her shoulder has had a prior history of arthroscopy had calcifications and was told she had a muscle tear. She was never had any prior dislocations. She has been lifting weights for some time. She does note she was sometimes gets pain and spasms in that shoulder at baseline. Patient denies any other injuries. Denies any new numbness tingling or weakness. She was states pain goes little bit down into her humeral area. She is able to move her fingers and hand without any issue. Denies any drug allergies. Denies any anticoagulants. Last intake was at 9:30 a.m. this morning she had breakfast. She does not use a CPAP or other oxygen at home. Dr. Sutton is her primary care physician. Related Data Home Medications Medication Instructions Recorded Confirmed cholecalciferol (vitamin D3) 50 1 unit PO DAILY ##0 06/03/16 05/28/24 mcg (2,000 unit) capsule (Vitamin D3) Previous Rx's Medication Instructions Recorded allopurinol 100 mg tablet 300 mg (3 x 100 mg) PO DAILY #270 08/13/24 tabs chlorthalidone 25 mg tablet 25 mg PO DAILY #90 tabs 08/13/24 felodipine 10 mg tablet,extended 10 mg PO DAILY #90 tabs 08/13/24 release 24 hr levothyroxine 50 mcg tablet 50 mcg PO DAILY #90 tabs 08/13/24 lisinopril 20 mg tablet 40 mg (2 x 20 mg) PO DAILY #180 08/13/24 tabs simvastatin 20 mg tablet 20 mg PO DAILY #90 tabs 08/13/24 Allergies Allergy/AdvReac Type Severity Reaction Status Date / Time No Known Drug Allergies Allergy Verified 05/28/24 11:25 Review of Systems Review of Systems ROS Unobtainable: All systems reviewed & are unremarkable except as noted in HPI and below Patient History Medical History Rosacea (~2021) Actinic keratosis (~2017) Scoliosis Ovarian cyst (~2001) Heavy menstrual period (~2001) Breast cancer (~2008) Hypertension Surgical History Anesthesia History of breast surgery (~2007) History of cataract removal with insertion of prosthetic lens (~2021) History of vaginal surgery Family History Father History of heart disease Mother Hypertension Sister Breast cancer Social History household members: spouse Smoking Status: Never smoker alcohol intake: current Smoking Status: Never smoker alcohol intake frequency: a few times a week Exam Narrative Exam Narrative: GENERAL: Alert and oriented x three, mild distress HEENT: Head normocephalic, atraumatic, EOMI, pupils reactive, face symmetric, moist mucous membranes NECK: Supple, full range of motion CARDIOVASCULAR: Regular rate and rhythm without murmurs, rubs or gallops. RESPIRATORY: Breath sounds equal bilaterally, no wheezes rales or rhonchi. ABDOMEN: Soft, nontender. Normoactive bowel sounds all 4 quadrants. No guarding or rebound, rigidity, no mass : No CVA tenderness EXTREMITIES: Decreased range of motion of the left shoulder, patient was normal range of motion of the elbow, wrist and hand in the left. 2+ radial pulses bilaterally. Ch[place]illa Farmer are equal bilaterally. Sensation is equal bilaterally, no clubbing or edema. Neurovascularly intact. NEUROLOGICAL: Cranial nerves II through XII grossly intact. Moving all extremities SKIN: Warm, dry, no petechiae, no rashes or lesions. Initial Vital Signs Initial Vital Signs: Vital Signs Pulse Rate 75 01/31/25 11:39 Pulse Oximetry 100 01/31/25 11:39 Procedures Orthopedic Joint Reduction Joint #1: Time Out Performed: Yes Side: left Joint Reduction Location: shoulder Analgesia: procedural sedation Shoulder Technique Used (if applicable): scapula manipulation and external rotation Technique used: direct manipulation Post-reduction neuro exam: intact and no change Post-reduction vascular: intact and no change Post Reduction X-Ray Obtained: Yes Post Reduction X-Ray Results: reduced Splint Applied: Yes Patient Tolerated Procedure: Well Procedural Sedation Consent signed: Yes Time out performed: Yes Indication: fracture/dislocation reduction (Shoulder dislocation) ASA Class: II Mallampati Airway Classification: Class III Preparation: chick grader applied, pulse oximeter, capnometry used, supplemental O2 applied, suction/airway equipment at bedside and IV secured IV Propofol dose (mg): 95 (Patient was 50 mg followed by an additional 25 mg aliquots and 3rd additional 25 mg aliquots.) ED Sedation Level: Moderate (Concious) Patient Tolerated Procedure: Well Complications: hypoxia Interventions: Airway repositioned and Assist by BVM Course Orders Ordered: ED Orders 01/31/25 11:46 XR shoulder LT 2+ views Stat 01/31/25 13:42 XR shoulder LT 2+ views Stat Discontinued Medications Morphine Sulfate (Morphine 4 Mg/Ml Inj) 4 mg IV NOW ONE Stop: 01/31/25 12:15 Last Admin: 01/31/25 12:19 Dose: 4 mg Documented By: DAYSI Propofol (Propofol 200 Mg/20 Ml Vial) 70 mg 1 mg/kg (70 mg) IV NOW ONE Stop: 01/31/25 13:03 Last Admin: 01/31/25 13:45 Dose: Not Given Documented By: CHAZ Propofol (Propofol 200 Mg/20 Ml Vial) 50 mg IV NOW ONE Stop: 01/31/25 13:44 Last Admin: 01/31/25 13:29 Dose: 50 mg Documented By: MLChase Propofol (Propofol 200 Mg/20 Ml Vial) 20 mg IV NOW ONE Stop: 01/31/25 13:45 Last Admin: 01/31/25 13:30 Dose: 20 mg Documented By: MLChase Propofol (Propofol 200 Mg/20 Ml Vial) 25 mg IV NOW ONE Stop: 01/31/25 13:45 Last Admin: 01/31/25 13:33 Dose: 25 mg Documented By: CHAZ Vital Signs Vital signs: Vital Signs - 8 hr 01/31/25 11:39 01/31/25 11:40 01/31/25 11:40 Temperature Pulse Rate 75 73 Respiratory Rate Blood Pressure 168/73 H Pulse Oximetry 100 100 Oxygen Delivery Method 01/31/25 11:41 01/31/25 12:00 01/31/25 12:01 Temperature 97.7 F Pulse Rate 71 71 Respiratory Rate 18 Blood Pressure 168/77 H 162/69 H Pulse Oximetry 100 100 Oxygen Delivery Method Room Air 01/31/25 12:01 01/31/25 12:30 01/31/25 12:31 Temperature Pulse Rate 70 67 66 Respiratory Rate Blood Pressure Pulse Oximetry 100 100 100 Oxygen Delivery Method 01/31/25 12:31 01/31/25 13:00 01/31/25 13:01 Temperature Pulse Rate 70 70 Respiratory Rate Blood Pressure 136/63 Pulse Oximetry 99 98 Oxygen Delivery Method 01/31/25 13:01 01/31/25 13:29 01/31/25 13:29 Temperature Pulse Rate 72 Respiratory Rate 19 Blood Pressure 209/78 H 185/78 H Pulse Oximetry 97 Oxygen Delivery Method 01/31/25 13:30 01/31/25 13:30 01/31/25 13:35 Temperature Pulse Rate 75 73 Respiratory Rate 19 15 Blood Pressure 146/66 H Pulse Oximetry 98 99 Oxygen Delivery Method 01/31/25 13:35 01/31/25 13:40 01/31/25 13:40 Temperature Pulse Rate 71 Respiratory Rate 20 Blood Pressure 170/79 H 158/76 H Pulse Oximetry 96 Oxygen Delivery Method 01/31/25 13:45 01/31/25 13:45 01/31/25 13:45 Temperature Pulse Rate 70 72 Respiratory Rate 14 16 Blood Pressure 140/80 Pulse Oximetry 96 Oxygen Delivery Method 01/31/25 14:00 01/31/25 14:00 01/31/25 14:15 Temperature Pulse Rate 67 Respiratory Rate 17 Blood Pressure 154/66 H 145/65 H Pulse Oximetry 95 Oxygen Delivery Method 01/31/25 14:15 01/31/25 14:30 01/31/25 14:30 Temperature Pulse Rate 69 67 Respiratory Rate Blood Pressure 152/67 H Pulse Oximetry 96 96 Oxygen Delivery Method 01/31/25 14:45 01/31/25 14:45 01/31/25 15:00 Temperature Pulse Rate 68 71 Respiratory Rate Blood Pressure 159/73 H Pulse Oximetry 93 96 Oxygen Delivery Method 01/31/25 15:00 01/31/25 15:15 01/31/25 15:15 Temperature Pulse Rate 70 Respiratory Rate Blood Pressure 159/73 H 162/75 H Pulse Oximetry 95 Oxygen Delivery Method MDM - Extremity Injury (Upper) Lab Data Labs: Point of Care Testing Test Results Not applicable [facility] Narrative Medical decision making narrative: 79-year-old male who was lifting a 20 lb weight overhead while lying flat on her back had dislocation without any other trauma. Patient has a known history of arthroscopy was told she had a muscle tear in the past with some calcifications but it was never had prior dislocation. No falls or other trauma. Patient is neurovascularly intact. Discussed with the patient she was agreeable for procedural sedation and reduction. Patient has been is at bedside for consent. Patient had fentanyl EN route with EMS, had morphine here in the department. Shoulder x-ray shows left anterior dislocation. Repeat shoulder x-ray shows appropriate glenohumeral articulation, dislocation has been reduced. No fracture. Discussed with the patient and family had procedural sedation and reduction. Patient was additionally resistant quite a bit had 50 mg followed by 25 mg was still quite resistant and awake and talking had additional 25 mg. Did have little bit of hypoxia with this and had oxygen with BVM for about for a minute or 2. Patient is certainly awakened did off oxygen. Patient had sling placed. We had findings with the patient, need for follow up very much recommend that she does physical therapy to prevent Re dislocation she had a pretty low mechanism of action. Contact for Orthopedic surgery was given but discussed she can also start with a primary care if she was able to get in sooner. Spoke with Dr. Walker, orthopedic surgery at 1620. Plan for patient to follow up agrees with the current plan. Discharge Plan Departure Patient Disposition: Home Clinical Impression: Closed dislocation of left shoulder Instructions: DI for Shoulder Dislocation Activity Restrictions/Additional Instructions: Follow up with primary care and/or orthopedic surgery. I would recommend follow up for physical therapy to help strength in the muscles I your shoulder to help prevent future dislocations. Call tomorrow morning to set up follow up. I would wear your sling for the next 3-5 days, then you can start to slowly increase your range of motion. Splint Care: Keep splint clean and dry. Elevated affected body part to decrease swelling. OK to use ice pack on the affected body part. Use for 15-20 minutes each time, for 5-6x per day. If you develop worsening pain, numbness, tingling, discoloration of the affected body part, adjust the sling, and either see your doctor for an urgent re-assessment, or return to the Emergency Department. Return to the Emergency Department for any new or worsening symptoms. Prescriptions: No Action cholecalciferol (vitamin D3) [Vitamin D3] 2,000 unit capsule 1 unit PO DAILY Qty: 0 allopurinol 100 mg tablet 300 mg PO DAILY Qty: 270 3RF chlorthalidone 25 mg tablet 25 mg PO DAILY Qty: 90 3RF levothyroxine 50 mcg tablet 50 mcg PO DAILY Qty: 90 3RF felodipine 10 mg tablet extended release 24 hr 10 mg PO DAILY Qty: 90 3RF lisinopril 20 mg tablet 40 mg PO DAILY Qty: 180 3RF simvastatin 20 mg tablet 20 mg PO DAILY Qty: 90 3RF Referrals: Bill Walker MD [Physician] - Judi Sutton DO [Primary Care Provider] - Stand Alone Forms: Patient Portal/API/Survey
[2025-01-31] MEDS: propofoL 200 MG/20 ML VIAL 50 MG IV (13:29)
[2025-01-31] MEDS: propofoL 200 MG/20 ML VIAL 20 MG IV (13:30)
[2025-01-31] MEDS: propofoL 200 MG/20 ML VIAL 25 MG IV (13:33)
--- NOTE | 2025-01-31 13:42 | DI.RAD.S_ITS ---
PROCEDURE: XR SHOULDER LT MIN 2V INDICATIONS: post reduc TECHNIQUE: 2 views of the shoulder were acquired. COMPARISON: [facility], CR, XR SHOULDER LT 2+ VIEWS, 01/31/2025, 11:59. FINDINGS: Bones: Previous dislocation has been appropriately reduced Soft tissues: No suspicious soft tissue calcifications. IMPRESSION: Appropriate glenohumeral articulation. Previous dislocation has been reduced. No fracture. Approved by: Min Silva M.D. on 01/31/2025 at 13:51
== END 2025-01-31 15:30 | disposition home or self-care (01) ==
PROVIDERS: Emergency Provider Emergency Medicine; PCP Family Medicine
DX: S43.005A Unspecified dislocation of left shoulder joint, initial encounter (principal); X50.0XXA Overexertion from strenuous movement or load, initial encounter
CPT/HCPCS: 23650; 73030; 96374; 99152; 99284; J2270; J2704

== ENCOUNTER → 2025-02-02 12:03 | Outpatient (CLI) | payer MEDICARE, SELFPAY ==
[2024-01-09 11:47] VITALS: BMI 31.1
--- NOTE | 2025-02-02 12:05 | DI.RAD.S_ITS ---
PROCEDURE: XR CHEST 2V INDICATIONS: worsening fatigue, bradycardia TECHNIQUE: 2 views of the chest were acquired. COMPARISON: None. FINDINGS: Heart, mediastinum and pulmonary vascular: Heart is normal in size and configuration. Mediastinum is unremarkable. Pulmonary vascular is normal. Lungs: Minor airspace disease in the lower lobes is likely likely atelectasis and/or fibrosis. Pleural spaces: Normal-no effusions or pneumothorax. Bones and soft tissues: Severe chronic wedging of the T11 vertebral body noted IMPRESSION: No acute cardiopulmonary disease. Dictated by: Jordon Hawkins M.D. on 02/03/2025 at 12:26 Approved by: Jordon Hawkins M.D. on 02/03/2025 at 12:27
[2025-02-02 13:48] LABS: Add Manual Diff / Slide Review NO; Basophils Absolute Auto 100 /uL (0-100); Basophils Percent Auto 1.2 % (0-2); Eosinophils Absolute Auto 300 /uL (0-450); Eosinophils Percent Auto 3.6 % (2-4); Hematocrit 37.3 % (36-46); Hemoglobin 12.8 g/dL (12.0-16.0); Lymphocytes Absolute Auto 2200 /uL (1100-4500); Lymphocytes Percent Auto 22.8 % (25-40); Mean Corpuscular HGB Conc 34.3 % (30-36); Mean Corpuscular Hemoglobin 30.1 PG (26-34); Mean Corpuscular Volume 87.7 fL (80-100); Monocytes Absolute Auto 900 /uL (0-900); Monocytes Percent Auto 9.1 % (3-14); Neutrophils Absolute Auto 6000 /uL (1500-7000); Neutrophils Percent Auto 63.3 % (50-75); Platelet Count 294 X10^3/uL (150-400); Red Blood Cell Count 4.25 X10^6/uL (4.0-5.2); Red Cell Distribution Width 14.1 % (11.6-14.8); White Blood Cell Count 9.5 X10^3/uL (4.5-11.0)
[2025-02-02 14:06] LABS: Alanine Aminotransferase 18 IU/L (<35); Albumin 4.7 g/dL (3.5-5.0); Albumin Globulin Ratio 1.8 (1.0-2.8); Alkaline Phosphatase 75 U/L (38-126); Aspartate Aminotransferase 29 IU/L (14-36); Bilirubin Total 0.5 mg/dL (0.2-1.3); Calcium 10.4 mg/dL (8.4-10.2); Carbon Dioxide 29 mmol/L (22-32); Chloride 99 mmol/L (98-107); Globulin 2.6 g/dL (1.7-4.1); Glucose 95 mg/dL (70-99); HEMOLYSIS < 15 (0-50); Potassium 5.2 mmol/L (3.4-5.1); Sodium 137 mmol/L (137-145); Total Protein 7.3 g/dL (6.3-8.2)
[2025-02-02 14:11] LABS: Blood Urea Nitrogen 24 mg/dL (7-17)
[2025-02-02 14:12] LABS: BUN Creatinine Ratio 21.6 (6-22); Estimated Glomerular Filt Rate 51 mL/min (>60)
[2025-02-02 15:07] LABS: Vitamin D 25 Hydroxy (D3) 42.6 ng/mL (30.0-100.0)
== END ==
PROVIDERS: PCP Family Medicine; Referring Provider Family Medicine; Visit Provider Family Medicine
DX: I44.0 Atrioventricular block, first degree (principal); I10 Essential (primary) hypertension; E03.9 Hypothyroidism, unspecified; R53.83 Other fatigue; Z79.899 Other long term (current) drug therapy; Z85.3 Personal history of malignant neoplasm of breast
CPT/HCPCS: 36415; 71046; 80053; 82306; 84443; 85025

== ENCOUNTER → 2025-02-08 10:19 | Outpatient (CLI) | payer MEDICARE, SELFPAY ==
[2024-01-09 11:47] VITALS: BMI 31.1
[2025-02-08 11:00] LABS: Appearance Urine UA CLEAR; Bilirubin Urine UA NEGATIVE (NEGATIVE); Color Urine UA YELLOW; Glucose Urine UA NEGATIVE (Negative); Ketones Urine UA NEGATIVE (NEGATIVE); Leukocyte Esterase Urine UA TRACE (NEGATIVE); Nitrite Urine UA NEGATIVE (Negative); Occult Blood Urine UA NEGATIVE (Negative); Protein Urine UA NEGATIVE (Negative); Urobilinogen Urine UA 0.2 E.U./dL (0.2)
[2025-02-08 11:05] LABS: RBC Urine None Seen (0-5/HPF); Urine Volume 10mL (spun); WBC Urine 0-1/HPF (0-5/HPF)
[2025-02-08 11:06] LABS: Bacteria Urine None Seen; Culture Indicated Urine Cult Not Indicated; Squamous Epithelial Cell Urine None Seen (0-5/HPF)
== END ==
PROVIDERS: PCP Family Medicine; Referring Provider Family Medicine; Visit Provider Family Medicine
DX: E87.5 Hyperkalemia (principal); R94.4 Abnormal results of kidney function studies
CPT/HCPCS: 81001

== ENCOUNTER → 2025-03-02 09:13 | Outpatient (CLI) | payer MEDICARE, SELFPAY ==
[2024-01-09 11:47] VITALS: BMI 31.1
--- NOTE | 2025-03-02 09:14 | DI.ECHO.S_ITS ---
[facility] : : [address] : : [place] : : [id number] : : Phone: [phone] Echocardiogram Report + + :Name: RISA SEGUNDO Study Date: 03/02/2025 Height: 60 in : :[facility] ReadingLocation: Weight: 150 lb : : Gender: Female BSA: 1.7 m2 : :: 1945 Age: 79 yrs BP: 199/101 mmHg: :Reason For Study: FATIGUE : :Ordering Physician: SAUNDRA, : :ELIU Performed By: Raffy Armstrong : :Referring: ELIU ARGUELLO : + + Interpretation Summary Left ventricular ejection fraction is estimated to be 55%. There is no significant valvular heart disease. Procedure: A two-dimensional transthoracic echocardiogram with color flow and Doppler was performed. The study quality was technically good. There is no prior echocardiogram noted for this patient. The patient was in normal sinus rhythm during the exam. Left Ventricle: The left ventricle is normal in size. Left ventricular wall thickness is at the upper limits of normal. There is no ventricular septal defect visualized. Left ventricular ejection fraction is estimated to be 55%. There are no focal wall motion abnormalities. Diastolic parameters suggest a relaxation abnormality of the left ventricle, consistent with probable normal filling pressures. Right Ventricle: The right ventricle is normal in size and function. Atria: The left atrium is moderately dilated. Right atrial size is normal. There is no Doppler evidence for an interatrial shunt. Mitral Valve: The mitral valve leaflets appear mildly thickened, but open well. There is mild to moderate mitral annular calcification. There is no mitral regurgitation noted. Aortic Valve: The aortic valve is trileaflet. The aortic valve is mildly calcified. No aortic regurgitation is present. Tricuspid Valve: The tricuspid valve leaflets are thin and pliable. There is trace tricuspid regurgitation. The right ventricular systolic pressure is estimated to be at least 24 mmHg based on an estimated right atrial pressure of 3 mm Hg. Pulmonic Valve: The pulmonic valve is not well seen, but is grossly normal. There is no pulmonic valvular regurgitation. Great Vessels: The aortic root is normal size. The dimensions of the ascending aorta are normal. The pulmonary artery is normal size. The IVC is of normal diameter and collapses greater than 50% with a sniff. This suggests a low right atrial pressure of 3 mm Hg. Pericardium/ Pleura There is no pericardial effusion. There is no pleural effusion. MMode/2D Measurements & Calculations LVIDd: 4.5 cm LVOT diam: 1.9 cm LVIDs: 3.3 cm Ao root diam: 3.1 cm FS: 25.4 % asc Aorta Diam: 3.0 cm EPSS: 0.74 cm IVSd: 1.1 cm LVPWd: 0.97 cm LV arnold. diameter/BSA (cm/m^2): 2.7 LV sys. diameter/BSA (cm/m^2): 2.0 LA A2 area: 20.1 cm2 RA long axis: 3.8 cm LA A4 area: 20.8 cm2 RA area: 10.5 cm2 LA length (vol): 5.1 cm RA vol: 24.6 ml LA vol: 70.0 ml RA : 14.9 ml/m2 LA vol index: 42.4 ml/m2 IVC diam: 1.5 cm RVD1 (basal): 3.9 cm RVD2 (mid): 2.9 cm TAPSE: 2.6 cm Doppler Measurements & Calculations Ao V2 max: 138.3 cm/sec LVOT Max Negrito: 113.6 cm/sec Ao V2 mean: 94.3 cm/sec LV V1 max P.2 mmHg Ao max P.6 mmHg LV V1 VTI: 26.2 cm Ao mean P.9 mmHg ISAAK(I,D): 2.2 cm2 Ao V2 VTI: 34.1 cm ISAAK(V,D): 2.3 cm2 sev ratio: 0.77 ISAAK indexed to BSA (cm^2/m^2): 1.3 MV E max negrito: 71.3 cm/sec TR max negrito: 230.8 cm/sec MV A max negrito: 108.9 cm/sec TR max P.3 mmHg MV E/A: 0.65 PA V2 max: 101.4 cm/sec Med Peak E' Negrito: 5.2 cm/sec PA V2 mean: 68.4 cm/sec E/E' med: 13.8 PA mean P.1 mmHg Lat Peak E' Negrito: 4.1 cm/sec PA pr(Accel): 58.4 mmHg E/E' lat: 17.2 E/e' average: 15.5 MV dec time: 0.24 sec SV(LVOT): 75.0 ml Reading Physician:11:20 AM
== END ==
PROVIDERS: PCP Family Medicine; Referring Provider Family Medicine; Visit Provider Family Medicine
DX: I34.81 Nonrheumatic mitral (valve) annulus calcification (principal); I70.0 Atherosclerosis of aorta; I44.0 Atrioventricular block, first degree; R53.83 Other fatigue; I10 Essential (primary) hypertension; E03.9 Hypothyroidism, unspecified
CPT/HCPCS: 93306

== ENCOUNTER 2025-03-30 14:30 | Outpatient (RCR) | payer MEDICARE, SELFPAY ==
[2024-01-09 11:47] VITALS: BMI 31.1
--- NOTE | 2025-03-03 17:12 | PT.OIE ---
Current Diagnoses Pain in unspecified shoulder (03/03/25) Past Medical History (Last Updated 02/02/25 @ 11:46 by Judi Sutton DO) Actinic keratosis (~2017) Breast cancer (~2008) Heavy menstrual period (~2001) Hypertension Ovarian cyst (~2001) Rosacea (~2021) Scoliosis Past Surgical History (Last Reviewed 01/31/25 @ 12:56 by Sara Cherry DO) Anesthesia History of breast surgery (~2007) History of cataract removal with insertion of prosthetic lens (~2021) History of vaginal surgery Visit Care Team Role Provider Type Judi Sutton DO Attending Provider Physician Family Provider Primary Care Provider Referring Provider Specialty: Family Practice Address: [address] [place] [address], [address], [facility] Email: [email or web address] Therapy Initial Evaluation PT-OP-A Visit Information Start: 03/03/25 14:04 Freq: Status: Active Protocol: Document 03/03/25 14:08 EMBEDDED DEVELOPER (Rec: 03/03/25 15:49 EMBEDDED DEVELOPER Laptop) Out-Patient Physical Therapy Visit Information Visit Information Visit Type Initial Evaluation Visit Start Time 14:00 Visit Stop Time 14:56 Visit Number 1 Number of CARPET LOOM FIXER Visits 0 Evaluation Information Evaluation Date 03/03/25 Precautions Precautions N/A PT-OP-B Current Condition Start: 03/03/25 14:04 Freq: Status: Active Protocol: Document 03/03/25 14:08 EMBEDDED DEVELOPER (Rec: 03/03/25 15:49 EMBEDDED DEVELOPER Laptop) Current Condition History of Current Condition Onset Date January 31 Current Complaints L shoulder weakness and decreased ROM after dislocation History of Current Condition 2/10 pain at rest currently. Pt reports on January 31 she was at the gym and doing an exercise familiar to her lifting a 20# dumbbell with BUEs overhead when she felt her L shoulder dislocate. It was non-surgically reduced in the ER and a sling worn for 1 week. Pt reports she has had a long history of L shoulder problems starting at 6 years old and had a surgical repair of a rotator cuff tear in 2005 , L shoulder has always been weaker than R. Treatment Goals Patient/Caregiver Goals To be able to get back into the gym without worrying about my left shoulder dislocating again. PT-OP-C Subjective Start: 03/03/25 14:04 Freq: Status: Active Protocol: Document 03/03/25 14:08 EMBEDDED DEVELOPER (Rec: 03/03/25 15:49 EMBEDDED DEVELOPER Laptop) Patient Questionnaires Quick Dash- Upper Extremity Quick Dash UE Score 20.45% disability PT-OP-F Manual Assessment Start: 03/03/25 14:04 Freq: Status: Active Protocol: Document 03/03/25 14:08 EMBEDDED DEVELOPER (Rec: 03/03/25 15:49 EMBEDDED DEVELOPER Laptop) Manual Assessments Soft Tissue Assessment Soft Tissue Mobility Assessment Noted decreased soft tissue mobility and trigger points with TTP to L upper trap, post delt, teres major, and tricep PT-OP-H Neuro Start: 03/03/25 14:04 Freq: Status: Active Protocol: Document 03/03/25 14:08 EMBEDDED DEVELOPER (Rec: 03/03/25 15:49 EMBEDDED DEVELOPER Laptop) Sensation Evaluation Comments Summary Comments no N/T PT-OP-J Posture/Palpation/Skin Start: 03/03/25 14:04 Freq: Status: Active Protocol: Document 03/03/25 14:08 EMBEDDED DEVELOPER (Rec: 03/03/25 15:49 EMBEDDED DEVELOPER Laptop) Posture Evaluation Comments Posture Comments Sitting: Leans to R side, L shoulder elevated higher than R, forward rounded L GH joint, winging to B scapulas, L>R PT-OP-K Range of Motion Start: 03/03/25 14:04 Freq: Status: Active Protocol: Document 03/03/25 14:08 EMBEDDED DEVELOPER (Rec: 03/03/25 15:49 EMBEDDED DEVELOPER Laptop) Shoulder Goniometric Range of Motion Shoulder L Shoulder ROM WFL No Testing Position Sitting Flexion 89 Extension 39 Abduction 80 External Rotation at 0 degrees Abduction 56 R Shoulder ROM WFL Yes Testing Position Sitting Flexion 160 Extension 50 Abduction 169 External Rotation at 0 degrees Abduction 66 PT-OP-M Strength Start: 03/03/25 14:04 Freq: Status: Active Protocol: Document 03/03/25 14:08 EMBEDDED DEVELOPER (Rec: 03/03/25 15:49 EMBEDDED DEVELOPER Laptop) Shoulder Strength Shoulder Manual Muscle Testing L Flexion 4- Good- Extension 4- Good- Abduction (C5) 4- Good- External Rotation 3+ Fair+ Internal Rotation 4 Good R Flexion 4+ Good+ Extension 4+ Good+ Abduction (C5) 4+ Good+ External Rotation 4 Good Internal Rotation 5 Normal Elbow/Forearm Strength Elbow and Forearm Manual Muscle Testing L Flexion (C6) 4+ Good+ Extension (C7) 4 Good R Flexion (C6) 5 Normal Extension (C7) 4+ Good+ PT-OP-Q Treatments Start: 03/03/25 14:04 Freq: Status: Active Protocol: Document 03/03/25 14:08 EMBEDDED DEVELOPER (Rec: 03/03/25 15:49 EMBEDDED DEVELOPER Laptop) Therapeutic Exercises Sidelying Exercises Shoulder Flex Side left Resistance gravity eliminated Reps/Minutes 10x2 Comments in L sidelying, added to HEP Shoulder ER Side left Resistance gravity Equipment Used towel roll Reps/Minutes 10x2 Comments in L sidelying, added to HEP Sitting Exercises Scap retraction Side bilateral Equipment Used mirror for cueing Reps/Minutes 10x2 Comments cueing to avoid B shoulder elevation PT-OP-T Assessment and Plan Start: 03/03/25 14:04 Freq: Status: Active Protocol: Document 03/03/25 14:08 EMBEDDED DEVELOPER (Rec: 03/03/25 15:49 EMBEDDED DEVELOPER Laptop) Physical Therapy Assessment Rehab Potential Rehabilitation Potential Excellent Evaluation Complexity Number of Personal Factors/Comorbidities 1-2 Number of Body Systems Impaired 1-2 Clinical Presentation at Evaluation Stable Impairments Impairments Activity Tolerance,Functional Activities,Posture,ROM,Soft Tissue Mobility,Strength Goals 3 Impairment Functional Mobility Impairment Quick Dash Fpc Goal (LTG) Pt will improve quick dash score from 20/11=20.45% disability to 15/11=9.1% disability LTG Duration 12 weeks 2 Impairment Strength Impairment L shoulder strength Short Term Goal (STG) Pt will improve L shoulder strength 1 MMT grade to improve function. STG Duration 6 weeks Fpc Goal (LTG) Pt will be able to lift 15lb kettle jose overhead with BUEs to demonstrate improved functional strength to return to working out at gym safely LTG Duration 12 weeks 1 Impairment ROM Impairment L shoulder AROM Short Term Goal (STG) Pt will improve L shoulder flex and abd AROM to 100 degrees to improve function. STG Duration 6 weeks Paper Cutter Goal (LTG) Pt will improve L shoulder flex and abd AROM to 160 degrees to improve function. LTG Duration 12 weeks Assessment Summary Assessment Pt presents post L shoulder dislocation with impaired L shoulder functional mobility with decreased posture, decreased L shoulder and scapular strength, decreased L shoulder AROM, and decreased soft tissue mobility to L upper trap, teres major, rhomboids, post delt, and tricep. Pt will highly benefit from skilled PT to address deficits and restore function. Physical Therapy Plan Frequency and Duration Frequency of Treatment 2-3x/wk Duration of treatment (weeks) 12 Plan of Care Start Date 03/03/25 Plan of Care End Date 05/26/25 Therapeutic Interventions Therapeutic Interventions Home Exercise Program,Joint Mobilizations,Manual Therapy, Neuromuscular Re-education, Patient/Caregiver Education, Soft Tissue Mobilization, Taping,Therapeutic Activities, Therapeutic Exercises Modalities Cold Pack/Ice Massage,Electric Stimulation,Hot Packs, Infrared Therapy,Ultrasound Next Visit Focus/Plan Next Note Type Treatment Note Next Visit Plan L shoulder exercises, STM to L upper trap and tricep, scapular exercises
--- NOTE | 2025-03-03 17:13 | PT.OPPOC ---
Physical, Occupational & Speech Therapy At [facility] Current Diagnoses Pain in unspecified shoulder (03/03/25) Visit Care Team Role Provider Type Judi Sutton DO Attending Provider Physician Family Provider Primary Care Provider Referring Provider Specialty: Family Practice Address: [address] [place] [address], [address], [facility] Email: [email or web address] Plan Of Care PT-OP-B Current Condition Start: 03/03/25 14:04 Freq: Status: Active Protocol: Document 03/03/25 14:08 MOTHERS HELPER (Rec: 03/03/25 15:49 MOTHERS HELPER Laptop) Current Condition History of Current Condition Onset Date January 31 Current Complaints L shoulder weakness and decreased ROM after dislocation History of Current Condition 2/10 pain at rest currently. Pt reports on January 31 she was at the gym and doing an exercise familiar to her lifting a 20# dumbbell with BUEs overhead when she felt her L shoulder dislocate. It was non-surgically reduced in the ER and a sling worn for 1 week. Pt reports she has had a long history of L shoulder problems starting at 6 years old and had a surgical repair of a rotator cuff tear in 2005 , L shoulder has always been weaker than R. Treatment Goals Patient/Caregiver Goals To be able to get back into the gym without worrying about my left shoulder dislocating again. PT-OP-T Assessment and Plan Start: 03/03/25 14:04 Freq: Status: Active Protocol: Document 03/03/25 14:08 MOTHERS HELPER (Rec: 03/03/25 15:49 MOTHERS HELPER Laptop) Physical Therapy Assessment Rehab Potential Rehabilitation Potential Excellent Evaluation Complexity Number of Personal Factors/Comorbidities 1-2 Number of Body Systems Impaired 1-2 Clinical Presentation at Evaluation Stable Impairments Impairments Activity Tolerance,Functional Activities,Posture,ROM,Soft Tissue Mobility,Strength Goals 3 Impairment Functional Mobility Impairment Quick Dash Fermentation Manager Goal (LTG) Pt will improve quick dash score from 20/11=20.45% disability to 15/11=9.1% disability LTG Duration 12 weeks 2 Impairment Strength Impairment L shoulder strength Short Term Goal (STG) Pt will improve L shoulder strength 1 MMT grade to improve function. STG Duration 6 weeks [facility] Goal (LTG) Pt will be able to lift 15lb kettle jose overhead with BUEs to demonstrate improved functional strength to return to working out at gym safely LTG Duration 12 weeks 1 Impairment ROM Impairment L shoulder AROM Short Term Goal (STG) Pt will improve L shoulder flex and abd AROM to 100 degrees to improve function. STG Duration 6 weeks Fermentation Manager Goal (LTG) Pt will improve L shoulder flex and abd AROM to 160 degrees to improve function. LTG Duration 12 weeks Assessment Summary Assessment Pt presents post L shoulder dislocation with impaired L shoulder functional mobility with decreased posture, decreased L shoulder and scapular strength, decreased L shoulder AROM, and decreased soft tissue mobility to L upper trap, teres major, rhomboids, post delt, and tricep. Pt will highly benefit from skilled PT to address deficits and restore function. Physical Therapy Plan Frequency and Duration Frequency of Treatment 2-3x/wk Duration of treatment (weeks) 12 Plan of Care Start Date 03/03/25 Plan of Care End Date 05/26/25 Therapeutic Interventions Therapeutic Interventions Home Exercise Program,Joint Mobilizations,Manual Therapy, Neuromuscular Re-education, Patient/Caregiver Education, Soft Tissue Mobilization, Taping,Therapeutic Activities, Therapeutic Exercises Modalities Cold Pack/Ice Massage,Electric Stimulation,Hot Packs, Infrared Therapy,Ultrasound Next Visit Focus/Plan Next Note Type Treatment Note Next Visit Plan L shoulder exercises, STM to L upper trap and tricep, scapular exercises Plan of Care Dates Plan of Care Start Date 03/03/25 Plan of Care End Date 05/26/25 Electronically Signed by: Emelia Barclay, PT 03/03/25 7758 If you are in agreement with this Plan of Care, please return a signed and dated copy. I have reviewed this Plan of Care and certify that the skilled therapy services above are required to meet the patient?s needs. Physician Signature Date Printed Name and Credentials Clinical Instructor Signature Printed Name and Credentials
--- NOTE | 2025-03-05 17:20 | PT.OTN ---
Current Diagnoses Pain in unspecified shoulder (03/05/25) Physical Therapy Treatment Note PT-OP-A Visit Information Start: 03/03/25 14:04 Freq: Status: Active Protocol: Document 03/05/25 12:28 INPUT OUTPUT CLERK (Rec: 03/05/25 15:23 INPUT OUTPUT CLERK Laptop) Out-Patient Physical Therapy Visit Information Visit Information Visit Type Treatment Note Visit Start Time 14:32 Visit Stop Time 15:17 Visit Number 2 Number of FIRER RETORT Visits 0 Evaluation Information Evaluation Date 03/03/25 Precautions Precautions N/A PT-OP-B Current Condition Start: 03/03/25 14:04 Freq: Status: Active Protocol: Document 03/03/25 14:08 INPUT OUTPUT CLERK (Rec: 03/03/25 15:49 INPUT OUTPUT CLERK Laptop) Current Condition History of Current Condition Onset Date January 31 Current Complaints L shoulder weakness and decreased ROM after dislocation History of Current Condition 2/10 pain at rest currently. Pt reports on January 31 she was at the gym and doing an exercise familiar to her lifting a 20# dumbbell with BUEs overhead when she felt her L shoulder dislocate. It was non-surgically reduced in the ER and a sling worn for 1 week. Pt reports she has had a long history of L shoulder problems starting at 6 years old and had a surgical repair of a rotator cuff tear in 2005 , L shoulder has always been weaker than R. Treatment Goals Patient/Caregiver Goals To be able to get back into the gym without worrying about my left shoulder dislocating again. PT-OP-C Subjective Start: 03/03/25 14:04 Freq: Status: Active Protocol: Document 03/05/25 12:28 INPUT OUTPUT CLERK (Rec: 03/05/25 15:23 INPUT OUTPUT CLERK Laptop) OP-PT Subjective Patient Comments Patient Comments Pt reports she has been performing her HEP without issues. PT-OP-F Manual Assessment Start: 03/03/25 14:04 Freq: Status: Active Protocol: Document 03/03/25 14:08 INPUT OUTPUT CLERK (Rec: 03/03/25 15:49 INPUT OUTPUT CLERK Laptop) Manual Assessments Soft Tissue Assessment Soft Tissue Mobility Assessment Noted decreased soft tissue mobility and trigger points with TTP to L upper trap, post delt, teres major, and tricep PT-OP-H Neuro Start: 03/03/25 14:04 Freq: Status: Active Protocol: Document 03/03/25 14:08 INPUT OUTPUT CLERK (Rec: 03/03/25 15:49 INPUT OUTPUT CLERK Laptop) Sensation Evaluation Comments Summary Comments no N/T PT-OP-J Posture/Palpation/Skin Start: 03/03/25 14:04 Freq: Status: Active Protocol: Document 03/03/25 14:08 INPUT OUTPUT CLERK (Rec: 03/03/25 15:49 INPUT OUTPUT CLERK Laptop) Posture Evaluation Comments Posture Comments Sitting: Leans to R side, L shoulder elevated higher than R, forward rounded L GH joint, winging to B scapulas, L>R PT-OP-K Range of Motion Start: 03/03/25 14:04 Freq: Status: Active Protocol: Document 03/03/25 14:08 INPUT OUTPUT CLERK (Rec: 03/03/25 15:49 INPUT OUTPUT CLERK Laptop) Shoulder Goniometric Range of Motion Shoulder L Shoulder ROM WFL No Testing Position Sitting Flexion 89 Extension 39 Abduction 80 External Rotation at 0 degrees Abduction 56 R Shoulder ROM WFL Yes Testing Position Sitting Flexion 160 Extension 50 Abduction 169 External Rotation at 0 degrees Abduction 66 PT-OP-M Strength Start: 03/03/25 14:04 Freq: Status: Active Protocol: Document 03/03/25 14:08 INPUT OUTPUT CLERK (Rec: 03/03/25 15:49 INPUT OUTPUT CLERK Laptop) Shoulder Strength Shoulder Manual Muscle Testing L Flexion 4- Good- Extension 4- Good- Abduction (C5) 4- Good- External Rotation 3+ Fair+ Internal Rotation 4 Good R Flexion 4+ Good+ Extension 4+ Good+ Abduction (C5) 4+ Good+ External Rotation 4 Good Internal Rotation 5 Normal Elbow/Forearm Strength Elbow and Forearm Manual Muscle Testing L Flexion (C6) 4+ Good+ Extension (C7) 4 Good R Flexion (C6) 5 Normal Extension (C7) 4+ Good+ PT-OP-Q Treatments Start: 03/03/25 14:04 Freq: Status: Active Protocol: Document 03/05/25 12:28 INPUT OUTPUT CLERK (Rec: 03/05/25 15:23 INPUT OUTPUT CLERK Laptop) Therapeutic Exercises Sidelying Exercises Shoulder Flex Side left Resistance gravity eliminated Reps/Minutes 10x2 Shoulder ER Side left Resistance 1# dumbbell Equipment Used towel roll Reps/Minutes 10x2 Comments in R sidelying, added to HEP Sitting Exercises Tricep Stretch Sitting Exercise Name Horizontal Adduction shoulder stretch Side left Reps/Minutes 1 min x2 Comments Added to HEP Scap depression Side bilateral Equipment Used Mirror Reps/Minutes 10x2 Comments TC Bicep Curls Side bilateral Resistance against gravity Equipment Used 2# dumbbell Reps/Minutes 10x3 Scap retraction Side bilateral Reps/Minutes 10x2 Comments no cueing needed Manual Therapy Treatment Consent Patient gave verbal consent for manual Yes treatment Soft Tissue Mobilization STM Body Location L upper trap, supraspinatus, tricep Mobilization Type Myofascial Release,Rolling Intensity/Depth Superficial Body Position R sidelying PT-OP-T Assessment and Plan Start: 03/03/25 14:04 Freq: Status: Active Protocol: Document 03/05/25 12:28 INPUT OUTPUT CLERK (Rec: 03/05/25 15:23 INPUT OUTPUT CLERK Laptop) Physical Therapy Assessment Impairments Impairments Activity Tolerance,Functional Activities,Posture,ROM,Soft Tissue Mobility,Strength Goals 3 Impairment Functional Mobility Impairment Quick Dash Nougat Cutter Machine Goal (LTG) Pt will improve quick dash score from 20/11=20.45% disability to 15/11=9.1% disability LTG Duration 12 weeks 2 Impairment Strength Impairment L shoulder strength Short Term Goal (STG) Pt will improve L shoulder strength 1 MMT grade to improve function. STG Duration 6 weeks Intermediate Goal (LTG) Pt will be able to lift 15lb kettle jose overhead with BUEs to demonstrate improved functional strength to return to working out at gym safely LTG Duration 12 weeks 1 Impairment ROM Impairment L shoulder AROM Short Term Goal (STG) Pt will improve L shoulder flex and abd AROM to 100 degrees to improve function. STG Duration 6 weeks Nougat Cutter Machine Goal (LTG) Pt will improve L shoulder flex and abd AROM to 160 degrees to improve function. LTG Duration 12 weeks Assessment Summary Assessment Pt sat with moist heat back on shoulders for 10 mins while performing seated exercises prior to manual therapy for improved pliability of muscles . Pt tolerated exercises and manual therapy well with addition of 1# dumbbell for sidelying shoulder ER added to HEP. Physical Therapy Plan Frequency and Duration Frequency of Treatment 2-3x/wk Duration of treatment (weeks) 12 Plan of Care Start Date 03/03/25 Plan of Care End Date 05/26/25 Therapeutic Interventions Therapeutic Interventions Home Exercise Program,Joint Mobilizations,Manual Therapy, Neuromuscular Re-education, Patient/Caregiver Education, Soft Tissue Mobilization, Taping,Therapeutic Activities, Therapeutic Exercises Modalities Cold Pack/Ice Massage,Electric Stimulation,Hot Packs, Infrared Therapy,Ultrasound Next Visit Focus/Plan Next Note Type Treatment Note Next Visit Plan Supine L shoulder isometric stabilization, tricep stretch, upper trap stretch
--- NOTE | 2025-03-09 17:58 | PT.OTN ---
Current Diagnoses Pain in unspecified shoulder (03/09/25) Physical Therapy Treatment Note PT-OP-A Visit Information Start: 03/03/25 14:04 Freq: Status: Active Protocol: Document 03/09/25 17:06 AB (Rec: 03/09/25 17:58 AB Laptop) Out-Patient Physical Therapy Visit Information Visit Information Visit Type Treatment Note Visit Start Time 17:06 Visit Stop Time 17:50 Visit Number 3 Number of PRODUCTION MECHANIC Visits 1 Evaluation Information Evaluation Date 03/03/25 Precautions Precautions N/A PT-OP-B Current Condition Start: 03/03/25 14:04 Freq: Status: Active Protocol: Document 03/03/25 14:08 CERTIFIED PUBLIC ACCOUNTANT (Rec: 03/03/25 15:49 CERTIFIED PUBLIC ACCOUNTANT Laptop) Current Condition History of Current Condition Onset Date January 31 Current Complaints L shoulder weakness and decreased ROM after dislocation History of Current 2/10 pain at rest currently. Pt reports on January 31 she Condition was at the gym and doing an exercise familiar to her lifting a 20# dumbbell with BUEs overhead when she felt her L shoulder dislocate. It was non-surgically reduced in the ER and a sling worn for 1 week. Pt reports she has had a long history of L shoulder problems starting at 6 years old and had a surgical repair of a rotator cuff tear in 2005, L shoulder has always been weaker than R. Treatment Goals Patient/Caregiver To be able to get back into the gym without worrying Goals about my left shoulder dislocating again. PT-OP-C Subjective Start: 03/03/25 14:04 Freq: Status: Active Protocol: Document 03/09/25 17:06 AB (Rec: 03/09/25 17:58 AB Laptop) OP-PT Subjective Patient Comments Patient Comments Patient reports she is better, getting better every day . Patient reports she wakes up in pain the last few night. More reports sleeps on back and sides. AROM L shoulder flexion 116 deg start of session. PT-OP-F Manual Assessment Start: 03/03/25 14:04 Freq: Status: Active Protocol: Document 03/03/25 14:08 CERTIFIED PUBLIC ACCOUNTANT (Rec: 03/03/25 15:49 CERTIFIED PUBLIC ACCOUNTANT Laptop) Manual Assessments Soft Tissue Assessment Soft Tissue Mobility Noted decreased soft tissue mobility and trigger points Assessment with TTP to L upper trap, post delt, teres major, and tricep PT-OP-H Neuro Start: 03/03/25 14:04 Freq: Status: Active Protocol: Document 03/03/25 14:08 CERTIFIED PUBLIC ACCOUNTANT (Rec: 03/03/25 15:49 CERTIFIED PUBLIC ACCOUNTANT Laptop) Sensation Evaluation Comments Summary Comments no N/T PT-OP-J Posture/Palpation/Skin Start: 03/03/25 14:04 Freq: Status: Active Protocol: Document 03/03/25 14:08 CERTIFIED PUBLIC ACCOUNTANT (Rec: 03/03/25 15:49 CERTIFIED PUBLIC ACCOUNTANT Laptop) Posture Evaluation Comments Posture Comments Sitting: Leans to R side, L shoulder elevated higher than R, forward rounded L GH joint, winging to B scapulas, L>R PT-OP-K Range of Motion Start: 03/03/25 14:04 Freq: Status: Active Protocol: Document 03/03/25 14:08 CERTIFIED PUBLIC ACCOUNTANT (Rec: 03/03/25 15:49 CERTIFIED PUBLIC ACCOUNTANT Laptop) Shoulder Goniometric Range of Motion Shoulder L Shoulder ROM WFL No Testing Position Sitting Flexion 89 Extension 39 Abduction 80 External Rotation at 56 0 degrees Abduction R Shoulder ROM WFL Yes Testing Position Sitting Flexion 160 Extension 50 Abduction 169 External Rotation at 66 0 degrees Abduction PT-OP-M Strength Start: 03/03/25 14:04 Freq: Status: Active Protocol: Document 03/03/25 14:08 CERTIFIED PUBLIC ACCOUNTANT (Rec: 03/03/25 15:49 CERTIFIED PUBLIC ACCOUNTANT Laptop) Shoulder Strength Shoulder Manual Muscle Testing L Flexion 4- Good- Extension 4- Good- Abduction (C5) 4- Good- External Rotation 3+ Fair+ Internal Rotation 4 Good R Flexion 4+ Good+ Extension 4+ Good+ Abduction (C5) 4+ Good+ External Rotation 4 Good Internal Rotation 5 Normal Elbow/Forearm Strength Elbow and Forearm Manual Muscle Testing L Flexion (C6) 4+ Good+ Extension (C7) 4 Good R Flexion (C6) 5 Normal Extension (C7) 4+ Good+ PT-OP-Q Treatments Start: 03/03/25 14:04 Freq: Status: Active Protocol: Document 03/09/25 17:06 AB (Rec: 03/09/25 17:58 AB Laptop) Therapeutic Exercises Sitting Exercises UT stretch Side bilateral Reps/Minutes 60 sec each side X 2 Comments verbal cues HEP Tricep Stretch Sitting Exercise Horizontal Adduction shoulder stretch Name Side left Reps/Minutes 1 min x2 Comments Added to HEP/ Review Standing Exercises isometric reactives Standing Exercise Bilateral for row Name Side left Resistance level 1 for ER/IR, Level 2 for all other mvts Reps/Minutes X 10 ER and IR, X 12 abd and add, X 15 flex and ext, X 15 row Comments verbal and visual cues HEP Manual Therapy Treatment Consent Patient gave verbal Yes consent for manual treatment Soft Tissue Mobilization STM Body Location L upper trap, supraspinatus, tricep Mobilization Type Cross-Friction,Rolling Intensity/Depth Moderate Body Position Sitting PT-OP-T Assessment and Plan Start: 03/03/25 14:04 Freq: Status: Active Protocol: Document 03/09/25 17:06 AB (Rec: 03/09/25 17:58 AB Laptop) Physical Therapy Assessment Goals 3 Impairment Functional Mobility Impairment Quick Dash Intermediate Goal (LTG) Pt will improve quick dash score from 20/11=20.45% disability to 15/11=9.1% disability LTG Duration 12 weeks 2 Impairment Strength Impairment L shoulder strength Short Term Goal (STG Pt will improve L shoulder strength 1 MMT grade to ) improve function. STG Duration 6 weeks Intermediate Goal (LTG) Pt will be able to lift 15lb SeatIDtle jose overhead with BUEs to demonstrate improved functional strength to return to working out at gym safely LTG Duration 12 weeks 1 Impairment ROM Impairment L shoulder AROM Short Term Goal (STG Pt will improve L shoulder flex and abd AROM to 100 ) degrees to improve function. STG Duration 6 weeks Textiles Sales Representative Goal (LTG) Pt will improve L shoulder flex and abd AROM to 160 degrees to improve function. LTG Duration 12 weeks Assessment Summary Assessment AROM L shoulder flexion 122 deg end of session compared to 116 start of session. Patient rates pain 1/10 left shoulder end of session Physical Therapy Plan Frequency and Duration Frequency of 2-3x/wk Treatment Duration of 12 treatment (weeks) Plan of Care Start 03/03/25 Date Plan of Care End 05/26/25 Date Next Visit Focus/Plan Next Note Type Treatment Note Next Visit Plan Assess alessandra to L shoulder isometric stabilization, upper trap stretch, possibly supine stabilization if standing not tolerated.
--- NOTE | 2025-03-11 15:07 | PT.OTN ---
Current Diagnoses Pain in unspecified shoulder (03/11/25) Physical Therapy Treatment Note PT-OP-A Visit Information Start: 03/03/25 14:04 Freq: Status: Active Protocol: Document 03/11/25 13:58 PLEATER (Rec: 03/11/25 14:43 PLEATER Laptop) Out-Patient Physical Therapy Visit Information Visit Information Visit Type Treatment Note Visit Start Time 13:50 Visit Stop Time 14:34 Visit Number 4 Number of OXIDATION OPERATOR Visits 0 PT-OP-B Current Condition Start: 03/03/25 14:04 Freq: Status: Active Protocol: Document 03/03/25 14:08 PLEATER (Rec: 03/03/25 15:49 PLEATER Laptop) Current Condition History of Current Condition Onset Date January 31 Current Complaints L shoulder weakness and decreased ROM after dislocation History of Current 2/10 pain at rest currently. Pt reports on January 31 she Condition was at the gym and doing an exercise familiar to her lifting a 20# dumbbell with BUEs overhead when she felt her L shoulder dislocate. It was non-surgically reduced in the ER and a sling worn for 1 week. Pt reports she has had a long history of L shoulder problems starting at 6 years old and had a surgical repair of a rotator cuff tear in 2005, L shoulder has always been weaker than R. Treatment Goals Patient/Caregiver To be able to get back into the gym without worrying Goals about my left shoulder dislocating again. PT-OP-C Subjective Start: 03/03/25 14:04 Freq: Status: Active Protocol: Document 03/11/25 13:58 PLEATER (Rec: 03/11/25 14:43 PLEATER Laptop) OP-PT Subjective Patient Comments Patient Comments Pt reports she felt good after last session, no residual soreness. Pt reports she changed position of arm when sleeping to improve pain at night. PT-OP-F Manual Assessment Start: 03/03/25 14:04 Freq: Status: Active Protocol: Document 03/03/25 14:08 PLEATER (Rec: 03/03/25 15:49 PLEATER Laptop) Manual Assessments Soft Tissue Assessment Soft Tissue Mobility Noted decreased soft tissue mobility and trigger points Assessment with TTP to L upper trap, post delt, teres major, and tricep PT-OP-H Neuro Start: 03/03/25 14:04 Freq: Status: Active Protocol: Document 03/03/25 14:08 PLEATER (Rec: 03/03/25 15:49 PLEATER Laptop) Sensation Evaluation Comments Summary Comments no N/T PT-OP-J Posture/Palpation/Skin Start: 03/03/25 14:04 Freq: Status: Active Protocol: Document 03/03/25 14:08 PLEATER (Rec: 03/03/25 15:49 PLEATER Laptop) Posture Evaluation Comments Posture Comments Sitting: Leans to R side, L shoulder elevated higher than R, forward rounded L GH joint, winging to B scapulas, L>R PT-OP-K Range of Motion Start: 03/03/25 14:04 Freq: Status: Active Protocol: Document 03/03/25 14:08 PLEATER (Rec: 03/03/25 15:49 PLEATER Laptop) Shoulder Goniometric Range of Motion Shoulder L Shoulder ROM WFL No Testing Position Sitting Flexion 89 Extension 39 Abduction 80 External Rotation at 56 0 degrees Abduction R Shoulder ROM WFL Yes Testing Position Sitting Flexion 160 Extension 50 Abduction 169 External Rotation at 66 0 degrees Abduction PT-OP-M Strength Start: 03/03/25 14:04 Freq: Status: Active Protocol: Document 03/03/25 14:08 PLEATER (Rec: 03/03/25 15:49 PLEATER Laptop) Shoulder Strength Shoulder Manual Muscle Testing L Flexion 4- Good- Extension 4- Good- Abduction (C5) 4- Good- External Rotation 3+ Fair+ Internal Rotation 4 Good R Flexion 4+ Good+ Extension 4+ Good+ Abduction (C5) 4+ Good+ External Rotation 4 Good Internal Rotation 5 Normal Elbow/Forearm Strength Elbow and Forearm Manual Muscle Testing L Flexion (C6) 4+ Good+ Extension (C7) 4 Good R Flexion (C6) 5 Normal Extension (C7) 4+ Good+ PT-OP-Q Treatments Start: 03/03/25 14:04 Freq: Status: Active Protocol: Document 03/11/25 13:58 PLEATER (Rec: 03/11/25 14:43 PLEATER Laptop) Cardio Equipment Upper Body Ergometer (UBE) Duration (Minutes) 5 Seat Position 13 Other For shoulder ROM warm up, 180 resistance Therapeutic Exercises Supine Exercises Shoulder Flex Supine Exercise Name with sustained scapular retraction Side left Reps/Minutes x10 Shoulder Abd Supine Exercise Name with sustained scapular retraction Side left Resistance gravity eliminated Reps/Minutes x10 Tricep Stretch Side left Reps/Minutes 60sx2 Comments gentle manual overpressure Sitting Exercises Levator Scap Stretch Side left Reps/Minutes 60s Comments sitting UT stretch Side left Reps/Minutes 60s each Comments sitting Standing Exercises isometric reactives Standing Exercise Flex and Abd to 90 degrees, ER/RE at 45 degrees Name Side left Resistance light-moderate manual resistance Reps/Minutes x15 each direction Manual Therapy Treatment Consent Patient gave verbal Yes consent for manual treatment Soft Tissue Mobilization STM Body Location L upper trap, supraspinatus, tricep Mobilization Type Cross-Friction,Rolling,Trigger Point Release Intensity/Depth Moderate Body Position Sitting PT-OP-T Assessment and Plan Start: 03/03/25 14:04 Freq: Status: Active Protocol: Document 03/11/25 13:58 PLEATER (Rec: 03/11/25 14:43 PLEATER Laptop) Physical Therapy Assessment Assessment Summary Assessment Pt tolerated all STM, stretches, and AROM well with noted improved strength and without pain. Physical Therapy Plan Frequency and Duration Frequency of 2-3x/wk Treatment Duration of 12 treatment (weeks) Plan of Care Start 03/03/25 Date Plan of Care End 05/26/25 Date Next Visit Focus/Plan Next Note Type Treatment Note Next Visit Plan Review HEP, advance L AROM to standing against gravity, upper trap and lev scap stretch, tricep stretch, lower trap exercises
--- NOTE | 2025-03-19 15:44 | PT.OTN ---
Current Diagnoses Pain in unspecified shoulder (03/19/25) Physical Therapy Treatment Note PT-OP-A Visit Information Start: 03/03/25 14:04 Freq: Status: Active Protocol: Document 03/19/25 07:29 METAL FURNACE OPERATOR (Rec: 03/19/25 08:21 METAL FURNACE OPERATOR Laptop) Out-Patient Physical Therapy Visit Information Visit Information Visit Type Treatment Note Visit Start Time 07:31 Visit Stop Time 08:10 Visit Number 5 Number of EXPORT SALES ASSISTANT Visits 0 PT-OP-B Current Condition Start: 03/03/25 14:04 Freq: Status: Active Protocol: Document 03/03/25 14:08 METAL FURNACE OPERATOR (Rec: 03/03/25 15:49 METAL FURNACE OPERATOR Laptop) Current Condition History of Current Condition Onset Date January 31 Current Complaints L shoulder weakness and decreased ROM after dislocation History of Current 2/10 pain at rest currently. Pt reports on January 31 she Condition was at the gym and doing an exercise familiar to her lifting a 20# dumbbell with BUEs overhead when she felt her L shoulder dislocate. It was non-surgically reduced in the ER and a sling worn for 1 week. Pt reports she has had a long history of L shoulder problems starting at 6 years old and had a surgical repair of a rotator cuff tear in 2005, L shoulder has always been weaker than R. Treatment Goals Patient/Caregiver To be able to get back into the gym without worrying Goals about my left shoulder dislocating again. PT-OP-C Subjective Start: 03/03/25 14:04 Freq: Status: Active Protocol: Document 03/19/25 07:29 METAL FURNACE OPERATOR (Rec: 03/19/25 08:21 METAL FURNACE OPERATOR Laptop) OP-PT Subjective Patient Comments Patient Comments Pt reports she took a trip to visit her son this last week and was able to work on her HEP, exercises and stretches performed without pain. She reports she feels reaching up to fix her hair has been a little easier than before starting PT. PT-OP-F Manual Assessment Start: 03/03/25 14:04 Freq: Status: Active Protocol: Document 03/03/25 14:08 METAL FURNACE OPERATOR (Rec: 03/03/25 15:49 METAL FURNACE OPERATOR Laptop) Manual Assessments Soft Tissue Assessment Soft Tissue Mobility Noted decreased soft tissue mobility and trigger points Assessment with TTP to L upper trap, post delt, teres major, and tricep PT-OP-H Neuro Start: 03/03/25 14:04 Freq: Status: Active Protocol: Document 03/03/25 14:08 METAL FURNACE OPERATOR (Rec: 03/03/25 15:49 METAL FURNACE OPERATOR Laptop) Sensation Evaluation Comments Summary Comments no N/T PT-OP-J Posture/Palpation/Skin Start: 03/03/25 14:04 Freq: Status: Active Protocol: Document 03/03/25 14:08 METAL FURNACE OPERATOR (Rec: 03/03/25 15:49 METAL FURNACE OPERATOR Laptop) Posture Evaluation Comments Posture Comments Sitting: Leans to R side, L shoulder elevated higher than R, forward rounded L GH joint, winging to B scapulas, L>R PT-OP-K Range of Motion Start: 03/03/25 14:04 Freq: Status: Active Protocol: Document 03/03/25 14:08 METAL FURNACE OPERATOR (Rec: 03/03/25 15:49 METAL FURNACE OPERATOR Laptop) Shoulder Goniometric Range of Motion Shoulder L Shoulder ROM WFL No Testing Position Sitting Flexion 89 Extension 39 Abduction 80 External Rotation at 56 0 degrees Abduction R Shoulder ROM WFL Yes Testing Position Sitting Flexion 160 Extension 50 Abduction 169 External Rotation at 66 0 degrees Abduction PT-OP-M Strength Start: 03/03/25 14:04 Freq: Status: Active Protocol: Document 03/03/25 14:08 METAL FURNACE OPERATOR (Rec: 03/03/25 15:49 METAL FURNACE OPERATOR Laptop) Shoulder Strength Shoulder Manual Muscle Testing L Flexion 4- Good- Extension 4- Good- Abduction (C5) 4- Good- External Rotation 3+ Fair+ Internal Rotation 4 Good R Flexion 4+ Good+ Extension 4+ Good+ Abduction (C5) 4+ Good+ External Rotation 4 Good Internal Rotation 5 Normal Elbow/Forearm Strength Elbow and Forearm Manual Muscle Testing L Flexion (C6) 4+ Good+ Extension (C7) 4 Good R Flexion (C6) 5 Normal Extension (C7) 4+ Good+ PT-OP-Q Treatments Start: 03/03/25 14:04 Freq: Status: Active Protocol: Document 03/19/25 07:29 METAL FURNACE OPERATOR (Rec: 03/19/25 08:21 METAL FURNACE OPERATOR Laptop) Cardio Equipment Upper Body Ergometer (UBE) Duration (Minutes) 7 Seat Position 12 Other Resistance 180, VC for maintained B scapular depression Therapeutic Exercises Standing Exercises Tricep Stretch Standing Exercise Over head against wall Name Side left Reps/Minutes [id number] Comments Added to HEP Rows Standing Exercise 1. Without TB 2. With TB Name Side bilateral Resistance L1 TB Reps/Minutes x10 each Comments HEP not changed, will update to TB at next session Shoulder Flex Side left Resistance gravity Reps/Minutes x10 Comments Updated HEP, VC to maintain scapular depression Shoulder Abd Side left Resistance gravity Reps/Minutes x10 Comments Updated HEP Shoulder Ext Side left Resistance L1 TB Reps/Minutes x10 Comments Updated HEP Shoulder IR Side left Resistance L1 TB Equipment Used towel roll Reps/Minutes x10 Comments Updated HEP Shoulder ER Side left Resistance L1 TB Equipment Used towel roll Reps/Minutes x10 Comments Updated HEP PT-OP-T Assessment and Plan Start: 03/03/25 14:04 Freq: Status: Active Protocol: Document 03/19/25 07:29 METAL FURNACE OPERATOR (Rec: 03/19/25 08:21 METAL FURNACE OPERATOR Laptop) Physical Therapy Assessment Goals 3 Impairment Functional Mobility Impairment Quick Dash Veterans Service Officer Goal (LTG) Pt will improve quick dash score from 20/11=20.45% disability to 15/11=9.1% disability LTG Duration 12 weeks 2 Impairment Strength Impairment L shoulder strength Short Term Goal (STG Pt will improve L shoulder strength 1 MMT grade to ) improve function. STG Duration 6 weeks Senior Living Goal (LTG) Pt will be able to lift 15lb kettle jose overhead with BUEs to demonstrate improved functional strength to return to working out at gym safely LTG Duration 12 weeks 1 Impairment ROM Impairment L shoulder AROM Short Term Goal (STG Pt will improve L shoulder flex and abd AROM to 100 ) degrees to improve function. STG Duration 6 weeks Veterans Service Officer Goal (LTG) Pt will improve L shoulder flex and abd AROM to 160 degrees to improve function. LTG Duration 12 weeks Progress Towards Goals Progress Towards Progressing Toward Goals Goals Progress Comments Upgraded HEP to add more resistance d/t improving strength/endurance Assessment Summary Assessment Pt demonstrated improved LUE strength and endurance this session and time spent upgrading HEP to add gravity resistance or L1 TB. No pain during session. Physical Therapy Plan Frequency and Duration Frequency of 2-3x/wk Treatment Duration of 12 treatment (weeks) Plan of Care Start 03/03/25 Date Plan of Care End 05/26/25 Date Therapeutic Interventions Therapeutic Home Exercise Program,Joint Mobilizations,Manual Interventions Therapy,Neuromuscular Re-education,Patient/Caregiver Education,Soft Tissue Mobilization,Taping,Therapeutic Activities,Therapeutic Exercises Modalities Cold Pack/Ice Massage,Electric Stimulation,Hot Packs, Infrared Therapy,Ultrasound Next Visit Focus/Plan Next Note Type Treatment Note Next Visit Plan Lower trap strengthening, add L1 TB to rows, serratus punches, STM to L scapula/upper trap as needed
--- NOTE | 2025-03-24 17:52 | PT.OTN ---
Current Diagnoses Pain in unspecified shoulder (03/24/25) Physical Therapy Treatment Note PT-OP-A Visit Information Start: 03/03/25 14:04 Freq: Status: Active Protocol: Document 03/24/25 13:51 POLISHER DIAL (Rec: 03/24/25 14:36 POLISHER DIAL Laptop) Out-Patient Physical Therapy Visit Information Visit Information Visit Type Treatment Note Visit Start Time 13:45 Visit Stop Time 14:33 Visit Number 6 Number of ELECTROTYPER HELPER Visits 0 PT-OP-B Current Condition Start: 03/03/25 14:04 Freq: Status: Active Protocol: Document 03/03/25 14:08 POLISHER DIAL (Rec: 03/03/25 15:49 POLISHER DIAL Laptop) Current Condition History of Current Condition Onset Date January 31 Current Complaints L shoulder weakness and decreased ROM after dislocation History of Current 2/10 pain at rest currently. Pt reports on January 31 she Condition was at the gym and doing an exercise familiar to her lifting a 20# dumbbell with BUEs overhead when she felt her L shoulder dislocate. It was non-surgically reduced in the ER and a sling worn for 1 week. Pt reports she has had a long history of L shoulder problems starting at 6 years old and had a surgical repair of a rotator cuff tear in 2005, L shoulder has always been weaker than R. Treatment Goals Patient/Caregiver To be able to get back into the gym without worrying Goals about my left shoulder dislocating again. PT-OP-C Subjective Start: 03/03/25 14:04 Freq: Status: Active Protocol: Document 03/24/25 13:51 POLISHER DIAL (Rec: 03/24/25 14:36 POLISHER DIAL Laptop) OP-PT Subjective Patient Comments Patient Comments Pt reports exercises are getting easier but having increased pain to L arm pit feeling like pressure/ tightness. Pt also feels like she is almost back to her normal and would like to go down to 1x/wk and then D/C soon. Patient Reported Improving Progress PT-OP-F Manual Assessment Start: 03/03/25 14:04 Freq: Status: Active Protocol: Document 03/03/25 14:08 POLISHER DIAL (Rec: 03/03/25 15:49 POLISHER DIAL Laptop) Manual Assessments Soft Tissue Assessment Soft Tissue Mobility Noted decreased soft tissue mobility and trigger points Assessment with TTP to L upper trap, post delt, teres major, and tricep PT-OP-H Neuro Start: 03/03/25 14:04 Freq: Status: Active Protocol: Document 03/03/25 14:08 POLISHER DIAL (Rec: 03/03/25 15:49 POLISHER DIAL Laptop) Sensation Evaluation Comments Summary Comments no N/T PT-OP-J Posture/Palpation/Skin Start: 03/03/25 14:04 Freq: Status: Active Protocol: Document 03/03/25 14:08 POLISHER DIAL (Rec: 03/03/25 15:49 POLISHER DIAL Laptop) Posture Evaluation Comments Posture Comments Sitting: Leans to R side, L shoulder elevated higher than R, forward rounded L GH joint, winging to B scapulas, L>R PT-OP-K Range of Motion Start: 03/03/25 14:04 Freq: Status: Active Protocol: Document 03/03/25 14:08 POLISHER DIAL (Rec: 03/03/25 15:49 POLISHER DIAL Laptop) Shoulder Goniometric Range of Motion Shoulder L Shoulder ROM WFL No Testing Position Sitting Flexion 89 Extension 39 Abduction 80 External Rotation at 56 0 degrees Abduction R Shoulder ROM WFL Yes Testing Position Sitting Flexion 160 Extension 50 Abduction 169 External Rotation at 66 0 degrees Abduction PT-OP-M Strength Start: 03/03/25 14:04 Freq: Status: Active Protocol: Document 03/03/25 14:08 POLISHER DIAL (Rec: 03/03/25 15:49 POLISHER DIAL Laptop) Shoulder Strength Shoulder Manual Muscle Testing L Flexion 4- Good- Extension 4- Good- Abduction (C5) 4- Good- External Rotation 3+ Fair+ Internal Rotation 4 Good R Flexion 4+ Good+ Extension 4+ Good+ Abduction (C5) 4+ Good+ External Rotation 4 Good Internal Rotation 5 Normal Elbow/Forearm Strength Elbow and Forearm Manual Muscle Testing L Flexion (C6) 4+ Good+ Extension (C7) 4 Good R Flexion (C6) 5 Normal Extension (C7) 4+ Good+ PT-OP-Q Treatments Start: 03/03/25 14:04 Freq: Status: Active Protocol: Document 03/24/25 13:51 POLISHER DIAL (Rec: 03/24/25 14:36 POLISHER DIAL Laptop) Therapeutic Exercises Sitting Exercises Self STM Sitting Exercise L tricep STM using tennis ball Name Side left Equipment Used tennis ball and non-slip surface on counter top Comments Added to HEP after adding heat to L tricep Standing Exercises Rows Side bilateral Resistance T1 TB Reps/Minutes x10 Comments Progressed HEP Shoulder Abd Side bilateral Resistance T1 TB Reps/Minutes x10 Comments Progressed HEP Shoulder Ext Side bilateral Resistance T1 TB Reps/Minutes x10 Comments HEP review Manual Therapy Treatment Consent Patient gave verbal Yes consent for manual treatment Soft Tissue Mobilization STM Body Location L lat and tricep Mobilization Type Cross-Friction,Rolling,Trigger Point Release Intensity/Depth Moderate Body Position Sitting Comments multiple trigger points to L tricep PT-OP-T Assessment and Plan Start: 03/03/25 14:04 Freq: Status: Active Protocol: Document 03/24/25 13:51 POLISHER DIAL (Rec: 03/24/25 14:36 POLISHER DIAL Laptop) Physical Therapy Assessment Goals 3 Impairment Functional Mobility Impairment Quick Dash Longterm Goal (LTG) Pt will improve quick dash score from 20/11=20.45% disability to 15/11=9.1% disability LTG Duration 12 weeks 2 Impairment Strength Impairment L shoulder strength Short Term Goal (STG Pt will improve L shoulder strength 1 MMT grade to ) improve function. STG Duration 6 weeks Longterm Goal (LTG) Pt will be able to lift 15lb kettle jose overhead with BUEs to demonstrate improved functional strength to return to working out at gym safely LTG Duration 12 weeks 1 Impairment ROM Impairment L shoulder AROM Short Term Goal (STG Pt will improve L shoulder flex and abd AROM to 100 ) degrees to improve function. STG Duration 6 weeks Biomass Boiler Operator Goal (LTG) Pt will improve L shoulder flex and abd AROM to 160 degrees to improve function. LTG Duration 12 weeks Progress Towards Goals Progress Towards Progressing Toward Goals Goals Assessment Summary Assessment Pt with increased pain to L tricep and L latissimus insertion with decreased tissue mobility to both muscles and multiple trigger points to tricep. Time spent this session on STM and self STM added to HEP. Discussed improvement of L shoulder strength almost to pt's normal and wanting to decrease frequency to 1x/wk this week and next week, perform progress note at next session and discuss D/C. Physical Therapy Plan Frequency and Duration Frequency of 2-3x/wk Treatment Duration of 12 treatment (weeks) Plan of Care Start 03/03/25 Date Plan of Care End 05/26/25 Date Therapeutic Interventions Therapeutic Home Exercise Program,Joint Mobilizations,Manual Interventions Therapy,Neuromuscular Re-education,Patient/Caregiver Education,Soft Tissue Mobilization,Taping,Therapeutic Activities,Therapeutic Exercises Modalities Cold Pack/Ice Massage,Electric Stimulation,Hot Packs, Infrared Therapy,Ultrasound Next Visit Focus/Plan Next Note Type Progress Note Next Visit Plan Progress note, discuss when to D/C, discuss ease back into gym work outs
--- NOTE | 2025-03-30 15:54 | PT.OTN ---
Current Diagnoses Pain in unspecified shoulder (03/30/25) Physical Therapy Treatment Note PT-OP-A Visit Information Start: 03/03/25 14:04 Freq: Status: Active Protocol: Document 03/30/25 14:39 PRODUCTION QUALITY MANAGER (Rec: 03/30/25 15:54 PRODUCTION QUALITY MANAGER Laptop) Out-Patient Physical Therapy Visit Information Visit Information Visit Type Discharge Summary Visit Start Time 14:33 Visit Stop Time 15:16 Visit Number 7 Number of VESSEL MANAGER Visits 0 Evaluation Information Evaluation Date 03/03/25 PT-OP-B Current Condition Start: 03/03/25 14:04 Freq: Status: Active Protocol: Document 03/03/25 14:08 PRODUCTION QUALITY MANAGER (Rec: 03/03/25 15:49 PRODUCTION QUALITY MANAGER Laptop) Current Condition History of Current Condition Onset Date January 31 Current Complaints L shoulder weakness and decreased ROM after dislocation History of Current 2/10 pain at rest currently. Pt reports on January 31 she Condition was at the gym and doing an exercise familiar to her lifting a 20# dumbbell with BUEs overhead when she felt her L shoulder dislocate. It was non-surgically reduced in the ER and a sling worn for 1 week. Pt reports she has had a long history of L shoulder problems starting at 6 years old and had a surgical repair of a rotator cuff tear in 2005, L shoulder has always been weaker than R. Treatment Goals Patient/Caregiver To be able to get back into the gym without worrying Goals about my left shoulder dislocating again. PT-OP-C Subjective Start: 03/03/25 14:04 Freq: Status: Active Protocol: Document 03/30/25 14:39 PRODUCTION QUALITY MANAGER (Rec: 03/30/25 15:54 PRODUCTION QUALITY MANAGER Laptop) OP-PT Subjective Patient Comments Patient Comments Pt reports she feels she is near to her prior level except just a bit weaker on her RUE but will get there. She is wanting to D/C today and continue getting stronger via her HEP and returning to the gym in a few weeks. Patient Questionnaires Quick Dash- Upper Extremity Quick Dash UE Score 2.27% disability Quick Dash UE 1 to 19% Impaired (Score 1-19) Impairment OP-PT Pain Assessment Comments Pain Comments No pain with any functional activities PT-OP-F Manual Assessment Start: 03/03/25 14:04 Freq: Status: Active Protocol: Document 03/30/25 14:39 PRODUCTION QUALITY MANAGER (Rec: 03/30/25 15:54 PRODUCTION QUALITY MANAGER Laptop) Manual Assessments Other Manual Assessments Other Manual improved L upper trap soft tissue mobility but still Assessments moderately limited PT-OP-H Neuro Start: 03/03/25 14:04 Freq: Status: Active Protocol: Document 03/03/25 14:08 PRODUCTION QUALITY MANAGER (Rec: 03/03/25 15:49 PRODUCTION QUALITY MANAGER Laptop) Sensation Evaluation Comments Summary Comments no N/T PT-OP-J Posture/Palpation/Skin Start: 03/03/25 14:04 Freq: Status: Active Protocol: Document 03/03/25 14:08 PRODUCTION QUALITY MANAGER (Rec: 03/03/25 15:49 PRODUCTION QUALITY MANAGER Laptop) Posture Evaluation Comments Posture Comments Sitting: Leans to R side, L shoulder elevated higher than R, forward rounded L GH joint, winging to B scapulas, L>R PT-OP-K Range of Motion Start: 03/03/25 14:04 Freq: Status: Active Protocol: Document 03/30/25 14:39 PRODUCTION QUALITY MANAGER (Rec: 03/30/25 15:54 PRODUCTION QUALITY MANAGER Laptop) Shoulder Goniometric Range of Motion Shoulder L Shoulder ROM WFL No Testing Position Sitting Flexion 144 Extension 40 Abduction 106 External Rotation at 59 0 degrees Abduction R Shoulder ROM WFL Yes Testing Position Sitting Flexion 160 Extension 50 Abduction 169 External Rotation at 66 0 degrees Abduction PT-OP-M Strength Start: 03/03/25 14:04 Freq: Status: Active Protocol: Document 03/30/25 14:39 PRODUCTION QUALITY MANAGER (Rec: 03/30/25 15:54 PRODUCTION QUALITY MANAGER Laptop) Shoulder Strength Shoulder Manual Muscle Testing L Flexion 4 Good Extension 5 Normal Abduction (C5) 4 Good External Rotation 4 Good Internal Rotation 4+ Good+ R Flexion 4+ Good+ Extension 4+ Good+ Abduction (C5) 4+ Good+ External Rotation 4 Good Internal Rotation 5 Normal PT-OP-Q Treatments Start: 03/03/25 14:04 Freq: Status: Active Protocol: Document 03/30/25 14:39 PRODUCTION QUALITY MANAGER (Rec: 03/30/25 15:54 PRODUCTION QUALITY MANAGER Laptop) Therapeutic Exercises Standing Exercises Overhead raises Standing Exercise Squats with BUE overhead raises Name Side bilateral Resistance 4# and 5# dumbbell held in BUEs Reps/Minutes x10 each weight Comments VC for straight elbows Other Exercises Edu on progression Other Exercise Name Educated pt on how to progress HEP Equipment Used TB Comments given L3 and L4 bands to continue progressing ind PT-OP-T Assessment and Plan Start: 03/03/25 14:04 Freq: Status: Active Protocol: Document 03/30/25 14:39 PRODUCTION QUALITY MANAGER (Rec: 03/30/25 15:54 PRODUCTION QUALITY MANAGER Laptop) Physical Therapy Assessment Goals 3 Impairment Functional Mobility Impairment Quick Dash [employer] Blasting Goal (LTG) Pt will improve quick dash score from 20/11=20.45% disability to 15/11=9.1% disability MET: 03/30 LTG Duration 12 weeks 2 Impairment Strength Impairment L shoulder strength Short Term Goal (STG Pt will improve L shoulder strength 1 MMT grade to ) improve function. Status: MET 03/30 STG Duration 6 weeks Prison Goal (LTG) Pt will be able to lift 15lb kettle jose overhead with BUEs to demonstrate improved functional strength to return to working out at gym safely LTG Duration 12 weeks 1 Impairment ROM Impairment L shoulder AROM Short Term Goal (STG Pt will improve L shoulder flex and abd AROM to 100 ) degrees to improve function. Status: MET 03/30 STG Duration 6 weeks [employer] Blasting Goal (LTG) Pt will improve L shoulder flex and abd AROM to 160 degrees to improve function. LTG Duration 12 weeks Progress Towards Goals Progress Towards Goals Met Goals Progress Comments Short term goals met, pt wanting to D/c and continue progressing on her own with HEP Assessment Summary Assessment Pt has demonstrated improvement in LUE AROM, strength, and function to meet all STGs and 1 LTG and is ind with her HEP. She does not have pain with any functional activity and would like to D/C from PT and continue progressing towards remaining LTGs at home ind via HEP. D/C PT Physical Therapy Plan Therapeutic Interventions Therapeutic Home Exercise Program,Joint Mobilizations,Manual Interventions Therapy,Neuromuscular Re-education,Patient/Caregiver Education,Soft Tissue Mobilization,Taping,Therapeutic Activities,Therapeutic Exercises Modalities Cold Pack/Ice Massage,Electric Stimulation,Hot Packs, Infrared Therapy,Ultrasound Discharge Physical Therapy Discharge Reasons Patient Request Discharge Comments See Assessment
== END 2025-06-17 13:01 | disposition home or self-care (01) ==
LOC: PHYS 14:30
PROVIDERS: Family Provider Family Medicine; PCP Family Medicine; Referring Provider Family Medicine; Visit Provider Family Medicine
DX: M25.519 Pain in unspecified shoulder (principal)
CPT/HCPCS: 97110; 97140; 97162

== ENCOUNTER → 2025-06-14 08:10 | Outpatient (CLI) | payer MEDICARE, SELFPAY ==
[2024-01-09 11:47] VITALS: BMI 31.1
--- NOTE | 2025-06-16 08:26 | DI.NM.S_ITS ---
DATE OF SERVICE: 06/14/2025 EXERCISE TREADMILL STRESS TEST PROCEDURE: Exercise treadmill stress test without imaging. ORDERING PROVIDER: Cande Sheridan PA-C INDICATIONS: The patient is a 80-year-old female with hypertension and atypical chest discomfort. FINDINGS: 1. The patient was able to exercise for 9 minutes on a standard Chidi protocol suggesting exceptional exercise capacity with an PAYTON of -77%, achieving 10.1 METs. 2. She had a normal heart rate response to exercise, achieving a maximum heart rate of 144 bpm (102% of her predicted maximum). She had a moderate hypertensive blood pressure response with a resting blood pressure of 144/74 increasing to a maximum of 240/90. 3. She had moderate exertional dyspnea but no anginal chest discomfort or other anginal symptoms. 4. Her resting ECG shows sinus rhythm with mild, nonspecific inferolateral ST-segment abnormalities that become accentuated with stress but remains nonspecific, particularly given the hypertensive blood pressure response. She had rare isolated PVCs but no complex ectopy. IMPRESSION: 1. Probable normal, low-risk stress test for ischemia with mild accentuation of baseline ST-segment abnormalities. 2. Exceptional exercise capacity without angina but a hypertensive blood pressure response to exercise. 3. Rare isolated PVCs with stress but no other arrhythmias. More Sosa - RS/fn/IA doc#: [id number]/job#: [id number] dd: 06/14/2025 17:13:00 dt: 06/14/2025 17:58:00 DICTATING /COPIES TO: Johnathan Flores MD; TREMAINE Avila COPIES BUSHRAE: KE;
== END ==
PROVIDERS: PCP Family Medicine; Referring Provider Physician Assistant; Visit Provider Physician Assistant
DX: I44.0 Atrioventricular block, first degree (principal); I10 Essential (primary) hypertension; R07.9 Chest pain, unspecified
CPT/HCPCS: 93017